=== PATIENT | female | born 2000 | race Hispanic/Latino ===

== ENCOUNTER 2018-08-25 10:16 | Emergency (ER) | payer OTHER ==
[2018-08-25] MEDS ORDERED: ONDANSETRON 4 MG/2 ML VIAL ONE (11:18)
[2018-08-25] MEDS ORDERED: NA CHLORIDE 0.9% 1,000 ML ONE (11:18)
[2018-08-25] MEDS ORDERED: PANTOPRAZOLE 40 MG INJ ONE (11:18)
[2018-08-25 11:31] LABS: Absolute Lymphocytes (CBC) 2.2 K/uL (0.7-4.9); Absolute Monocytes 0.3 K/uL (0.1-1.3); Basophils % 0.8 % (0-1.3); Hematocrit 35.7 % (36.0-45.0); MCH 26.4 pg (27.0-35.0); MCV 80.3 fL (80-100); MPV 8.9 fL (7.6-11.3); RBC Red Blood Cell Count 4.45 M/uL (3.86-4.86)
[2018-08-25 11:46] LABS: ALT/SGPT 59 U/L (12-78); AST/SGOT 44 U/L (15-37); Albumin 3.7 g/dL (3.4-5.0); Alkaline Phosphatase 92 U/L (45-117); BUN Blood Urea Nitrogen 14 mg/dL (7-18); Bicarbonate 29 mmol/L (21-32); Bilirubin Direct < 0.1 mg/dL (0-0.2); Bilirubin Total 0.3 mg/dL (0.2-1.0); Glucose Level 91 mg/dL (74-106); Lipase 354 U/L (73-393); Potassium 3.9 mmol/L (3.5-5.1); Sodium Level 140 mmol/L (136-145)
--- NOTE | 2018-08-25 12:00 | RAD REPORT ---
EXAM DESCRIPTION: US - Abdomen Exam Limited - 08/25/2018 11:40 am COMPARISON: None. FINDINGS: Multiple small gallstones are present layering in the dependent portion of the gallbladder . No gallbladder wall thickening, mass or pericholecystic fluid. No common duct stone or biliary tree dilatation identified. IMPRESSION: Multi stone cholelithiasis.
--- NOTE | 2018-08-25 12:38 | EDPHYS ---
Physician Documentation [facility] Name: Harriet Palomo Age: 17 yrs Sex: Female : 2000 Arrival Date: 08/25/2018 Time: 10:17 Bed 6 Private MD: ED Physician Barak Tan HPI: 08/25 12:35 This 17 yrs old Female presents to ER via Ambulatory with complaints of kb Abdominal Pain, Headache. 12:35 The patient presents with abdominal pain in the upper abdomen. Onset: The kb symptoms/episode began/occurred 4 day(s) ago. The symptoms do not radiate. Associated signs and symptoms: Pertinent positives: nausea and vomiting. The symptoms are described as intermittent, sharp. Modifying factors: The symptoms are alleviated by nothing, the symptoms are aggravated by food. Severity of pain: At its worst the pain was moderate in the emergency department the pain is unchanged. The patient has not experienced similar symptoms in the past. The patient has not recently seen a physician. 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 - Social history:: Smoking status: Patient/guardian denies using tobacco. - Ebola Screening: : Patient denies travel to an Ebola-affected area in the 21 days before illness onset. ROS: 12:35 Constitutional: Negative for fever, chills, and weight loss, ENT: Negative for injury, kb pain, and discharge, Neck: Negative for injury, pain, and swelling, Cardiovascular: Negative for chest pain, palpitations, and edema, Respiratory: Negative for shortness of breath, cough, wheezing, and pleuritic chest pain, Back: Negative for injury and pain, : Negative for injury, bleeding, discharge, and swelling, MS/Extremity: Negative for injury and deformity, Skin: Negative for injury, rash, and discoloration, Neuro: Negative for headache, weakness, numbness, tingling, and seizure. 12:35 Abdomen/GI: Positive for abdominal pain, nausea and vomiting, Negative for diarrhea, constipation, abdominal cramps, abdominal distension, anorexia. Exam: 12:37 Constitutional: This is a well developed, well nourished patient who is awake, alert, kb and in no acute distress. Head/Face: Normocephalic, atraumatic. Chest/axilla: Normal chest wall appearance and motion. Nontender with no deformity. No lesions are appreciated. Cardiovascular: Regular rate and rhythm with a normal S1 and S2. No gallops, murmurs, or rubs. Normal PMI, no JVD. No pulse deficits. Respiratory: Lungs have equal breath sounds bilaterally, clear to auscultation and percussion. No rales, rhonchi or wheezes noted. No increased work of breathing, no retractions or nasal flaring. Abdomen/GI: Soft, non-tender, with normal bowel sounds. No distension or tympany. No guarding or rebound. No evidence of tenderness throughout. Skin: Warm, dry with normal turgor. Normal color with no rashes, no lesions, and no evidence of cellulitis. MS/ Extremity: Pulses equal, no cyanosis. Neurovascular intact. Full, normal range of motion. Neuro: Awake and alert, GCS 15, oriented to person, place, time, and situation. Cranial nerves II-XII grossly intact. Motor strength 5/5 in all extremities. Sensory grossly intact. Cerebellar exam normal. Normal gait. Vital Signs: 10:36 BP 120 / 85; Pulse 82; Resp 18; Temp 97.0; Pulse Ox 99% on R/A; Height 5 ft. 2 in. aj1 (157.48 cm) (R); Pain 4/10; 11:42 BP 107 / 54; Pulse 64; Resp 16; Pulse Ox 100% ; bp 12:41 BP 111 / 63; Pulse 71; Resp 16; Pulse Ox 100% ; bp MDM: 10:53 Patient medically screened. kb 12:36 Data reviewed: vital signs, nurses notes. Data interpreted: Pulse oximetry: on room air kb is 100 %. Interpretation: normal. Counseling: I had a detailed discussion with the patient and/or guardian regarding: the historical points, exam findings, and any diagnostic results supporting the discharge/admit diagnosis, lab results, radiology results, the need for outpatient follow up, a general surgeon, to return to the emergency department if symptoms worsen or persist or if there are any questions or concerns that arise at home. 12:37 ED course: Pt states pain has only been at night. Denies pain at this time. kb 08/25 10:57 Order name: Basic Metabolic Panel; Complete Time: 11:53 kb 08/25 10:57 Order name: CBC with Diff; Complete Time: 11:38 kb 08/25 10:57 Order name: Hepatic Function; Complete Time: 11:53 kb 08/25 10:57 Order name: Lipase; Complete Time: 11:53 kb 08/25 10:57 Order name: US Abdomen Limited; Complete Time: 12:30 kb 08/25 10:57 Order name: IV Saline Lock; Complete Time: 11:21 kb 08/25 10:57 Order name: Labs collected and sent; Complete Time: 11:21 kb Administered Medications: 11:21 Drug: NS 0.9% 1000 ml Route: IV; Rate: 1000 ml; Site: left antecubital; bp 12:41 Follow up: IV Status: Completed infusion bp 11:22 Drug: ProTONIX 40 mg Route: IVP; Site: left antecubital; bp 12:39 Follow up: Response: No adverse reaction; Nausea is decreased bp 11:22 Drug: Zofran 4 mg Route: IVP; Site: left antecubital; bp 12:39 Follow up: Response: Nausea is decreased bp Disposition: 14:09 Co-signature as Attending Physician, Barak Tan MD. rn Disposition: 08/25/18 12:37 Discharged to Home. Impression: Cholelithiasis. - Condition is Stable. - Discharge Instructions: Cholelithiasis, [id number]. - Prescriptions for Bentyl 20 mg Oral Tablet - take 1 tablet by ORAL route every 6 hours As needed; 20 tablet. Zofran 4 mg Oral Tablet - take 1 tablet by ORAL route every 6 hours As needed; 20 tablet. - Medication Reconciliation Form, Thank You Letter, Antibiotic Education, Prescription Opioid Use form. - Follow up: Emergency Department; When: As needed; Reason: Worsening of condition. Follow up: Private Physician; When: 2 - 3 days; Reason: Recheck today's complaints, Continuance of care, Re-evaluation by your physician. Signatures: Dispatcher [employer] EDWI Mary Kay Dyson, LC ZHANG-Whitley Cole RN RN aj1 Barak Tan MD MD rn Peltier, Brian RN RN bp Corrections: (The following items were deleted from the chart) 12:49 12:37 08/25/2018 12:37 Discharged to Home. Impression: Cholelithiasis. Condition is bp Stable. Forms are Medication Reconciliation Form, Thank You Letter, Antibiotic Education, Prescription Opioid Use. Follow up: Emergency Department; When: As needed; Reason: Worsening of condition. Follow up: Private Physician; When: 2 - 3 days; Reason: Recheck today's complaints, Continuance of care, Re-evaluation by your physician. kb
--- NOTE | 2018-08-25 12:38 | ER ---
Nurse's Notes [facility] Name: Harriet Palomo Age: 17 yrs Sex: Female : 2000 Arrival Date: 08/25/2018 Time: 10:17 Bed 6 Private MD: Diagnosis: Cholelithiasis Presentation: 08/25 10:33 Presenting complaint: Patient states: "I've been getting bad pain, it only happens at aj1 night" Patient points to epigastric area, states the pain usually last for approximately 3 hours and she vomits repeatedly during that time. Reports that this has happened for the past 4 nights, and the pain radiates to her chest and upper back. Also reports diarrhea. Patient states that she had a 2 weeks ago, but denies any complications. Transition of care: patient was not received from another setting of care. Onset of symptoms was August 20, 2018. Risk Assessment: Do you want to hurt yourself or someone else? Patient reports no desire to harm self or others. Initial Sepsis Screen: Does the patient meet any 2 criteria? No. Patient's initial sepsis screen is negative. Does the patient have a suspected source of infection? Yes: Acute abdominal pain. Care prior to arrival: None. 10:33 Method Of Arrival: Ambulatory aj1 10:33 Acuity: TONY 3 aj1 Triage Assessment: 10:36 General: Appears in no apparent distress. comfortable, Behavior is calm, cooperative, aj1 appropriate for age. Pain: Complains of pain in epigastric area Pain currently is 4 out of 10 on a pain scale. Neuro: Level of Consciousness is awake, alert, obeys commands. Cardiovascular: Patient's skin is warm and dry. Respiratory: Airway is patent Respiratory effort is even, unlabored, Respiratory pattern is regular, symmetrical. GI: Reports upper abdominal pain, diarrhea, nausea, vomiting. Derm: No signs and/or symptoms reported regarding the dermatologic system. Skin is pink, warm \\T\\ dry. normal. 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 - Social history:: Smoking status: Patient/guardian denies using tobacco. - Ebola Screening: : Patient denies travel to an Ebola-affected area in the 21 days before illness onset. Screenin:25 Abuse screen: Denies threats or abuse. Denies injuries from another. Nutritional bp screening: No deficits noted. Tuberculosis screening: No symptoms or risk factors identified. Fall Risk None identified. Assessment: 10:45 General: Appears in no apparent distress. comfortable, obese, Behavior is cooperative, bp appropriate for age, anxious. Pain: Complains of pain in abdomen and epigastric area. Neuro: Level of Consciousness is awake, alert, obeys commands, Oriented to person, place, time, situation, Appropriate for age. Cardiovascular: No deficits noted. Respiratory: Airway is patent Respiratory effort is even, unlabored, Respiratory pattern is regular, symmetrical. GI: Bowel sounds present X 4 quads. Abd is soft X 4 quads Reports epigastric pain. : No signs and/or symptoms were reported regarding the genitourinary system. EENT: No deficits noted. Derm: No deficits noted. Musculoskeletal: Circulation, motion, and sensation intact. Range of motion:. 11:41 Reassessment: PT RETURNED FROM U/S. UOP PENDING. bp 12:42 Reassessment: PT D/C HOME AMBULATORY, DX WITH CHOLELITHIASIS. bp Vital Signs: 10:36 BP 120 / 85; Pulse 82; Resp 18; Temp 97.0; Pulse Ox 99% on R/A; Height 5 ft. 2 in. aj1 (157.48 cm) (R); Pain 4/10; 11:42 BP 107 / 54; Pulse 64; Resp 16; Pulse Ox 100% ; bp 12:41 BP 111 / 63; Pulse 71; Resp 16; Pulse Ox 100% ; bp ED Course: 10:17 Patient arrived in ED. as 10:35 Triage completed. aj1 10:36 Arm band placed on Patient placed in waiting room, Patient notified of wait time. aj1 10:53 Mary Kay Dyson FNP-C is PHCP. kb 10:53 Barak Tan MD is Attending Physician. kb 11:07 Ray Romero, RUI is Primary Nurse. bp 11:22 Radiology exam delayed due to IV insertion attempt and/or patient not having aa4 appropriate IV at this time. 11:23 Inserted saline lock: 20 gauge in left antecubital area, using aseptic technique. Blood bp collected. 11:23 Initial lab(s) drawn, by me, sent to lab. em1 11:25 Patient has correct armband on for positive identification. Bed in low position. Call bp light in reach. Side rails up X2. 11:31 Patient taken to ultrasound. via wheelchair. aa4 11:39 Ultrasound completed. Patient tolerated well. Patient moved back from ultrasound. aa4 11:39 US Abdomen Limited In Process Unspecified. EDMS 12:42 No provider procedures requiring assistance completed. IV discontinued, intact, bp bleeding controlled, No redness/swelling at site. Pressure dressing applied. Administered Medications: 11:21 Drug: NS 0.9% 1000 ml Route: IV; Rate: 1000 ml; Site: left antecubital; bp 12:41 Follow up: IV Status: Completed infusion bp 11:22 Drug: ProTONIX 40 mg Route: IVP; Site: left antecubital; bp 12:39 Follow up: Response: No adverse reaction; Nausea is decreased bp 11:22 Drug: Zofran 4 mg Route: IVP; Site: left antecubital; bp 12:39 Follow up: Response: Nausea is decreased bp Outcome: 12:37 Discharge ordered by . kb 12:49 Discharged to home ambulatory. bp 12:49 Condition: stable 12:49 Discharge instructions given to patient, Instructed on discharge instructions, follow up and referral plans. medication usage, Demonstrated understanding of instructions, follow-up care, medications, Prescriptions given X 2. 12:49 Patient left the ED. bp Signatures: Dispatcher [employer] EDHI Mary Kay Dyson, LC ABRAMSP-Whitley Cole, RN RN aj1 Maryam Mejía Amanda aa4 Domo Mejía em1 Ray Romero, RN RN bp Corrections: (The following items were deleted from the chart) 10:37 10:33 Presenting complaint: Patient states: "I've been getting bad pain, it only aj1 happens at night" Patient points to epigastric area, states the pain usually last for approximately 3 hours and she vomits repeatedly during that time. Reports that this has happened for the past 4 nights, and the pain radiates to her chest and upper back. Also reports diarrhea. aj1
== END 2018-08-25 12:49 | disposition home or self-care (01) ==
LOC: ER 10:16
DX: K80.20 Calculus of gallbladder without cholecystitis without obstruction (principal)
CPT/HCPCS: 36415; 76705; 80048; 80076; 83690; 85025; 96361; 96374; 96375; 99284; C9113; J2405; J7030

== ENCOUNTER 2019-12-06 00:48 | Emergency (ER) | payer OTHER, SELFPAY ==
--- OUTSIDE RECORDS SUMMARY | 2019-12-06 00:49 | XMS REPORT ---
:2000 [facility] Address [address] [place] [address] Care Team Providers Name Role Phone Unavailable Unavailable Unavailable Problems This patient has no known problems. Allergies, Adverse Reactions, Alerts This patient has no known allergies or adverse reactions. Medications This patient has no known medications.
[2019-12-06] MEDS ORDERED: MORPHINE 4 MG/ML SYR ONE (01:40)
[2019-12-06] MEDS ORDERED: ONDANSETRON 4 MG/2 ML VIAL ONE (01:40)
[2019-12-06] MEDS ORDERED: NA CHLORIDE 0.9% 1,000 ML ONE (01:40)
[2019-12-06 01:47] LABS: Absolute Lymphocytes (CBC) 0.7 K/uL (0.7-4.9); Basophils % 0.3 % (0-1.3); Hematocrit 39.9 % (36.0-45.0); MPV 8.9 fL (7.6-11.3); RBC Red Blood Cell Count 4.78 M/uL (3.86-4.86)
[2019-12-06 01:59] LABS: ALT/SGPT 20 U/L (12-78); AST/SGOT 20 U/L (15-37); Albumin 3.7 g/dL (3.4-5.0); Alkaline Phosphatase 64 U/L (45-117); BUN Blood Urea Nitrogen 13 mg/dL (7-18); Bicarbonate 27 mmol/L (21-32); Bilirubin Direct < 0.1 mg/dL (0-0.2); Bilirubin Total 0.3 mg/dL (0.2-1.0); Glucose Level 101 mg/dL (74-106); Lipase 97 U/L (73-393); Potassium 3.6 mmol/L (3.5-5.1); Protein, Total 7.8 g/dL (6.4-8.2); Sodium Level 137 mmol/L (136-145)
[2019-12-06 02:26] LABS: Urine Blood TRACE (NEG); Urine Glucose NEGATIVE (NEG); Urine Protein NEGATIVE (NEG); Urine Specific Gravity 1.025 (1.005-1.030); Urine pH 5.5 (5.0-7.0)
--- NOTE | 2019-12-06 03:31 | EDPHYS ---
Physician Documentation [facility] Name: Harriet Palomo Age: 18 yrs Sex: Female : 2000 Arrival Date: 12/06/2019 Time: 00:51 Bed 14 Private MD: ED Physician Linh Brunson HPI: 12/06 01:16 This 18 yrs old Female presents to ER via Ambulatory with complaints of pm1 Abdominal pain. 01:16 The patient presents with abdominal pain in the upper abdomen. Onset: The pm1 symptoms/episode began/occurred yesterday, at 13:00. The symptoms radiate to back. Associated signs and symptoms: Pertinent positives: nausea and vomiting, Pertinent negatives: chest pain, diarrhea, dysuria, fever, shortness of breath. The symptoms are described as sharp. Modifying factors: The symptoms are alleviated by nothing, the symptoms are aggravated by food, Onset after eating velazquez eggs and beans for breakfast. Severity of pain: in the emergency department the pain is a 5 / 10. The patient has experienced similar episodes in the past, a few times, today's symptoms are similar, to previous "gallbladder attacks". The patient has not recently seen a physician. 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 - Coronavirus screen:: The patient has NOT traveled to [place] in the past 14 days. - Social history:: Smoking status: Patient denies any tobacco usage or history of. - Ebola Screening: : No symptoms or risks identified at this time. ROS: 01:16 Constitutional: Negative for fever, chills, and weight loss, Neck: Negative for injury, pm1 pain, and swelling, Cardiovascular: Negative for chest pain, palpitations, and edema, Respiratory: Negative for shortness of breath, cough, wheezing, and pleuritic chest pain. 01:16 Back: Negative for injury and pain, : Negative for injury, bleeding, discharge, and swelling, MS/Extremity: Negative for injury and deformity, Skin: Negative for injury, rash, and discoloration, Neuro: Negative for headache, weakness, numbness, tingling, and seizure. 01:16 Abdomen/GI: Positive for abdominal pain, nausea and vomiting, Negative for diarrhea, constipation. Exam: 01:16 Constitutional: This is a well developed, well nourished patient who is awake, alert, pm1 and in no acute distress. Head/Face: Normocephalic, atraumatic. Eyes: Pupils equal round and reactive to light, extra-ocular motions intact. Lids and lashes normal. Conjunctiva and sclera are non-icteric and not injected. Cornea within normal limits. Periorbital areas with no swelling, redness, or edema. ENT: Nares patent. No nasal discharge, no septal abnormalities noted. Tympanic membranes are normal and external auditory canals are clear. Oropharynx with no redness, swelling, or masses, exudates, or evidence of obstruction, uvula midline. Mucous membranes moist. Neck: Trachea midline, no thyromegaly or masses palpated, and no cervical lymphadenopathy. Supple, full range of motion without nuchal rigidity, or vertebral point tenderness. No Meningismus. Chest/axilla: Normal chest wall appearance and motion. Nontender with no deformity. No lesions are appreciated. Cardiovascular: Regular rate and rhythm with a normal S1 and S2. No gallops, murmurs, or rubs. Normal PMI, no JVD. No pulse deficits. Respiratory: Lungs have equal breath sounds bilaterally, clear to auscultation and percussion. No rales, rhonchi or wheezes noted. No increased work of breathing, no retractions or nasal flaring. 01:16 Back: No spinal tenderness. No costovertebral tenderness. Full range of motion. Skin: Warm, dry with normal turgor. Normal color with no rashes, no lesions, and no evidence of cellulitis. MS/ Extremity: Pulses equal, no cyanosis. Neurovascular intact. Full, normal range of motion. 01:16 Abdomen/GI: Inspection: obese Bowel sounds: normal, Palpation: soft, mild abdominal tenderness, in the epigastric area, mass, is not appreciated, rebound tenderness, is not appreciated. 01:16 Neuro: Orientation: is normal, Motor: is normal, no acute changes, moves all fours. Vital Signs: 01:02 BP 160 / 78; Pulse 130; Resp 18; Temp 97.8; Pulse Ox 98% ; Weight 58.97 kg; Height 5 ea ft. 2 in. (157.48 cm); Pain 6/10; 02:00 BP 128 / 76; Pulse 106; Resp 15; Pulse Ox 98% on R/A; rv 02:38 BP 119 / 77; Pulse 104; Resp 18; Pulse Ox 100% ; rv 03:41 BP 128 / 78; Pulse 99; Resp 18; Temp 97.8; Pulse Ox 99% ; ea 01:02 Body Mass Index 23.78 (58.97 kg, 157.48 cm) ea MDM: 01:09 Patient medically screened. pm1 02:16 Data reviewed: vital signs. Data interpreted: Pulse oximetry: on room air is 98 %. pm1 Interpretation: normal. 03:28 Counseling: I had a detailed discussion with the patient and/or guardian regarding: the pm1 historical points, exam findings, and any diagnostic results supporting the discharge/admit diagnosis, lab results, radiology results, the need for outpatient follow up, a plywood patcher, to return to the emergency department if symptoms worsen or persist or if there are any questions or concerns that arise at home. 12/06 01:08 Order name: CBC with Diff; Complete Time: 02:15 pm12/06 01:08 Order name: Creatinine for Radiology; Complete Time: 02:15 pm1 12/06 01:08 Order name: Hepatic Function; Complete Time: 02:15 pm1 12/06 01:08 Order name: Lipase; Complete Time: 02:15 pm12/06 01:46 Order name: Basic Metabolic Panel; Complete Time: 02:15 EDMI 12/06 01:08 Order name: CT Abd/Pelvis - IV Contrast Only pm1 12/06 02:22 Order name: Urine Dipstick--Ancillary (enter results) ia 12/06 02:22 Order name: Urine --Ancillary (enter results) ia 12/06 02:26 Order name: Urine --Ancillary; Complete Time: 03:06 EDMI 12/06 02:26 Order name: Urine Dipstick-Ancillary; Complete Time: 03:06 EDMI 12/06 01:08 Order name: IV Saline Lock; Complete Time: 01:33 pm1 12/06 01:08 Order name: Labs collected and sent; Complete Time: 01:33 pm12/06 01:08 Order name: Urine Dipstick-Ancillary (obtain specimen); Complete Time: 02:22 pm1 12/06 01:08 Order name: Urine Test (obtain specimen); Complete Time: 02:22 pm1 Administered Medications: 01:40 Drug: NS 0.9% 1000 ml Route: IV; Rate: 1000 ml; Site: right antecubital; rv 01:40 Drug: Zofran 4 mg Route: IVP; Site: right antecubital; rv 03:20 Follow up: Response: No adverse reaction ea 03:30 Not Given (Patient Refused): morphine 4 mg IVP once; RASS on ADMIN: Combtv4, Very ea Agttd3, Agttd2, Rstlss1, AlertClm0, Drwsy-1, Lt Sdtn-2, Mod Sdtn-3, Dp Sdtn-4, UnArsble-5 03:30 Drug: Bentyl 20 mg Route: PO; ea 03:40 Follow up: Response: No adverse reaction ea Disposition: 12/06/19 03:29 Discharged to Home. Impression: Unspecified abdominal pain, Headache. - Condition is Stable. - Discharge Instructions: Abdominal Pain, Adult, General Headache Without Cause. - Prescriptions for Bentyl 20 mg Oral Tablet - take 1 tablet by ORAL route every 6 hours As needed; 20 tablet. Zofran 4 mg Oral Tablet - take 1 tablet by ORAL route every 12 hours As needed; 20 tablet. - Medication Reconciliation Form, Thank You Letter, Antibiotic Education, Prescription Opioid Use form. - Follow up: Emergency Department; When: As needed; Reason: Worsening of condition. Follow up: Private Physician; When: 2 - 3 days; Reason: Recheck today's complaints, Continuance of care, Re-evaluation by your physician. - Problem is new. - Symptoms have improved. Addendum: 12/12/2019 16:30 Co-signature as Attending Physician, Linh Brunson MD. m a2 Signatures: Dispatcher [employer] EDMS Devin Dumont, REEL ASSEMBLER REEL ASSEMBLER pm1 Mile Meza RN RN ea Alzahri, Mohammad, MD MD ma2 Hu Sandoval RN RN rv Corrections: (The following items were deleted from the chart) 12/06 01:45 01:12 BASIC METABOLIC PANEL+[id number].LAB.BRZ ordered. EDMS EDMS 03:43 03:29 12/06/2019 03:29 Discharged to Home. Impression: Unspecified abdominal pain; ea Headache. Condition is Stable. Forms are Medication Reconciliation Form, Thank You Letter, Antibiotic Education, Prescription Opioid Use. Follow up: Emergency Department; When: As needed; Reason: Worsening of condition. Follow up: Private Physician; When: 2 - 3 days; Reason: Recheck today's complaints, Continuance of care, Re-evaluation by your physician. Problem is new. Symptoms have improved. pm1
--- NOTE | 2019-12-06 03:31 | ER ---
Nurse's Notes [facility] Name: Harriet Palomo Age: 18 yrs Sex: Female : 2000 Arrival Date: 12/06/2019 Time: 00:51 Bed 14 Private MD: Diagnosis: Unspecified abdominal pain;Headache Presentation: 12/06 01:00 Presenting complaint: Patient states: Pt reports around 1 PM she started having ea headache, nausea /vomiting and abdominal pain. Reports she not able to tolerate food. Denies constipation or diarrhea. States " I have had problems with my gallbladder in the past". Transition of care: patient was not received from another setting of care. Onset of symptoms was December 06, 2019. Risk Assessment: Do you want to hurt yourself or someone else? Patient reports no desire to harm self or others. Initial Sepsis Screen: Does the patient meet any 2 criteria? No. Patient's initial sepsis screen is negative. Does the patient have a suspected source of infection? No. Patient's initial sepsis screen is negative. Care prior to arrival: None. 01:00 Method Of Arrival: Ambulatory ea 01:00 Acuity: TONY 3 ea Triage Assessment: 01:04 Headache History: The patient has had previous headaches and this one is similar to ea previous episodes. General: Appears uncomfortable, Behavior is calm, cooperative, appropriate for age. Pain: Complains of pain in right upper quadrant and left upper quadrant Pain currently is 6 out of 10 on a pain scale. Pain began 1 day ago. Also complains of nausea. Neuro: Level of Consciousness is awake, alert, obeys commands, Oriented to person, place, time, situation, Reports headache frontal area. 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 - Coronavirus screen:: The patient has NOT traveled to [place] in the past 14 days. - Social history:: Smoking status: Patient denies any tobacco usage or history of. - Ebola Screening: : No symptoms or risks identified at this time. Screenin:02 Abuse screen: Denies threats or abuse. Nutritional screening: No deficits noted. ea Tuberculosis screening: No symptoms or risk factors identified. Fall Risk None identified. Assessment: 01:34 General: Appears in no apparent distress. Behavior is calm, cooperative. Pain: rv Complains of pain in abdomen. Neuro: Level of Consciousness is awake, alert, obeys commands, Oriented to person, place, time, situation. Cardiovascular: Patient's skin is warm and dry. Respiratory: Airway is patent. GI: Abdomen is round non-distended. 02:22 Reassessment: Patient appears in no apparent distress at this time. Patient and/or rv family updated on plan of care and expected duration. Pain level reassessed. Patient is alert, oriented x 3, equal unlabored respirations, skin warm/dry/pink. patient's pain scale is 3/10 at this time. Morphine was not given. patient taken to CT scan. 03:20 Reassessment: Patient and/or family updated on plan of care and expected duration. Pain ea level reassessed. Patient is alert, oriented x 3, equal unlabored respirations, skin warm/dry/pink. Awaiting on CT results. 03:40 Reassessment: Patient and/or family updated on plan of care and expected duration. Pain ea level reassessed. Patient is alert, oriented x 3, equal unlabored respirations, skin warm/dry/pink. Discharge instruction given to patient, verbalized the understanding of instruction. Pt left ED ambulatory accompanied by family, tolerating well. Vital Signs: 01:02 BP 160 / 78; Pulse 130; Resp 18; Temp 97.8; Pulse Ox 98% ; Weight 58.97 kg; Height 5 ea ft. 2 in. (157.48 cm); Pain 6/10; 02:00 BP 128 / 76; Pulse 106; Resp 15; Pulse Ox 98% on R/A; rv 02:38 BP 119 / 77; Pulse 104; Resp 18; Pulse Ox 100% ; rv 03:41 BP 128 / 78; Pulse 99; Resp 18; Temp 97.8; Pulse Ox 99% ; ea 01:02 Body Mass Index 23.78 (58.97 kg, 157.48 cm) ea ED Course: 00:51 Patient arrived in ED. ag3 01:02 Triage completed. ea 01:07 Devin Dumont NP is PHCP. pm1 01:07 Linh Brunson MD is Attending Physician. pm1 01:32 Hu Sandoval, RUI is Primary Nurse. rv 01:33 Inserted saline lock: 18 gauge in right antecubital area, using aseptic technique. rv Blood collected. 01:33 Patient has correct armband on for positive identification. Pulse ox on. NIBP on. rv 01:33 Patient placed in the treatment room, on a stretcher. rv 01:35 Radiology exam delayed due to lab results not completed at this time. (BUN/Creatinine) kw1 test not completed at this time. 01:54 Radiology exam delayed due to lab results not completed at this time. test kw1 not completed at this time. 02:07 Radiology exam delayed due to test not completed at this time. kw1 02:45 CT Abd/Pelvis - IV Contrast Only In Process Unspecified. EDMS 03:35 IV discontinued, intact, bleeding controlled, No redness/swelling at site. Pressure ea dressing applied. 03:42 No provider procedures requiring assistance completed. ea Administered Medications: 01:40 Drug: NS 0.9% 1000 ml Route: IV; Rate: 1000 ml; Site: right antecubital; rv 01:40 Drug: Zofran 4 mg Route: IVP; Site: right antecubital; rv 03:20 Follow up: Response: No adverse reaction ea 03:30 Not Given (Patient Refused): morphine 4 mg IVP once; RASS on ADMIN: Combtv4, Very ea Agttd3, Agttd2, Rstlss1, AlertClm0, Drwsy-1, Lt Sdtn-2, Mod Sdtn-3, Dp Sdtn-4, UnArsble-5 03:30 Drug: Bentyl 20 mg Route: PO; ea 03:40 Follow up: Response: No adverse reaction ea Outcome: 03:29 Discharge ordered by . pm1 03:43 Discharged to home ambulatory, with family. ea 03:43 Condition: stable 03:43 Discharge instructions given to patient, Instructed on discharge instructions, follow up and referral plans. medication usage, Demonstrated understanding of instructions, follow-up care, medications, Prescriptions given X 3. 03:43 Patient left the ED. ea Signatures: Dispatcher [employer] EDMS Devin Dumont, LYNETTE EXTENSION FORESTER pm1 Mile Meza RN RN Janie Montenegro kw1 Hu Sandoval RN RN Rochelle Monique ag3
[2019-12-06] MEDS ORDERED: DICYCLOMINE HCL 10 MG CAP ONE (03:40)
[2019-12-06 04:54] VITALS: TEMP 97.8
[2019-12-06 04:58] VITALS: BP 128/78; O2SAT 99
--- NOTE | 2019-12-06 10:36 | RAD REPORT ---
EXAM DESCRIPTION: Abdomen Pelvis W Contrast CLINICAL HISTORY: ABD PAIN COMPARISON: None. TECHNIQUE: CT ABDOMEN PELVIS WITH IV CONTRAST on 12/06/2019 1:08 AM FAMILY [employer]VOCATE This exam was performed according to our departmental dose-optimization program, which includes autom ated exposure control, adjustment of the mA and/or kV according to patient size and/or use of iterati ve reconstruction technique. FINDINGS: Lower lungs are clear. Abdomen: The liver is normal in appearance. There is no biliary dilatation. Gallbladder is normal in appearance. The pancreas and spleen are normal in appearance. The adrenal glands and kidneys are unre markable. Abdominal aorta is normal in course and caliber without aneurysm. There is no free air. There is no r etroperitoneal adenopathy. Pelvis: There is no bowel obstruction. Urinary bladder is unremarkable. There is moderate amount of f ree pelvic fluid. Uterus is normal in size. Appendix is normal. There is a small infraumbilical fat-c ontaining ventral hernia. Skeleton: There are no acute osseous findings. No suspicious bony lesions. IMPRESSION: No definite acute process. Electronically signed by: Dereck Bowman MD 12/06/2019 3:02 AM [facility]ILY [facility] Due to temporary technical issues with the PACS/Fluency reporting system, reports are being signed by the in house radiologist as a courtesy to ensure prompt reporting. The interpreting radiologist is f preet responsible for the content of the report.
== END 2019-12-06 03:43 | disposition home or self-care (01) ==
LOC: ER 00:48
DX: R51 Headache (principal)
CPT/HCPCS: 36415; 74177; 80048; 80076; 81003; 81025; 83690; 85025; 96374; 99284; J2405; J7030; Q9967

== ENCOUNTER 2020-04-27 16:34 | Emergency (ER) | payer OTHER, SELFPAY ==
--- OUTSIDE RECORDS SUMMARY | 2020-04-27 16:36 | XMS REPORT | Continuity of Care Document ---
:2000 Author Organization [facility] t Address [address] [place] [place] [address] Care Team Providers Name Role Phone Unavailable Unavailable Unavailable Problems This patient has no known problems. Allergies, Adverse Reactions, Alerts This patient has no known allergies or adverse reactions. Medications This patient has no known medications. Procedures This patient has no known procedures. Results This patient has no known results.
--- NOTE | 2020-04-27 17:20 | EDPHYS ---
Physician Documentation [facility] Name: Harriet Palomo Age: 19 yrs Sex: Female : 2000 Arrival Date: 04/27/2020 Time: 16:37 Bed 20 Private MD: ED Physician Calvin Huerta HPI: 04/27 17:18 This 19 yrs old Female presents to ER via Ambulatory with complaints of Body kb Aches, Fever, Headache, Weakness. 17:18 The patient or guardian reports flu symptoms, low-grade fever, myalgias. Severity of kb symptoms: At their worst the symptoms were mild, moderate, in the emergency department the symptoms are unchanged. 17:18 Onset: The symptoms/episode began/occurred 3 day(s) ago. Modifying factors: The kb symptoms are alleviated by nothing, the symptoms are aggravated by nothing. Associated signs and symptoms: Pertinent positives: chest pain, Pertinent negatives: diarrhea, ear ache, fever, nausea, rhinorrhea, sore throat, vomiting. The patient has not experienced similar symptoms in the past. The patient has not recently seen a physician. Pt reports fatigue, malaise, chills, body aches and headaches for 3 days. States she was with her friend over the weekend that just tested positive for barragan so she came to get tested just in case. . Historical: - Allergies: 16:38 No Known Drug Allergies; sv - PSHx: 16:38 ; sv - Immunization history:: Adult Immunizations. - Social history:: Smoking status: . ROS: 17:11 Neck: Negative for injury, pain, and swelling, Respiratory: Negative for shortness of kb breath, cough, wheezing, and pleuritic chest pain, Abdomen/GI: Negative for abdominal pain, nausea, vomiting, diarrhea, and constipation, MS/Extremity: Negative for injury and deformity, Skin: Negative for injury, rash, and discoloration. 17:11 Constitutional: Positive for body aches, chills, fatigue, malaise. 17:11 Cardiovascular: Positive for chest pain, Negative for edema, orthopnea, palpitations, paroxysmal nocturnal dyspnea. 17:11 Neuro: Positive for headache. Exam: 17:14 Constitutional: This is a well developed, well nourished patient who is awake, alert, kb and in no acute distress. Head/Face: Normocephalic, atraumatic. Chest/axilla: Normal chest wall appearance and motion. Nontender with no deformity. No lesions are appreciated. Cardiovascular: Regular rate and rhythm with a normal S1 and S2. No gallops, murmurs, or rubs. Normal PMI, no JVD. No pulse deficits. Respiratory: Lungs have equal breath sounds bilaterally, clear to auscultation and percussion. No rales, rhonchi or wheezes noted. No increased work of breathing, no retractions or nasal flaring. Abdomen/GI: Soft, non-tender, with normal bowel sounds. No distension or tympany. No guarding or rebound. No evidence of tenderness throughout. Skin: Warm, dry with normal turgor. Normal color with no rashes, no lesions, and no evidence of cellulitis. MS/ Extremity: Pulses equal, no cyanosis. Neurovascular intact. Full, normal range of motion. Neuro: Awake and alert, GCS 15, oriented to person, place, time, and situation. Cranial nerves II-XII grossly intact. Motor strength 5/5 in all extremities. Sensory grossly intact. Cerebellar exam normal. Normal gait. Vital Signs: 16:40 BP 115 / 70; Pulse 109; Resp 16; Temp 98.8(TE); Pulse Ox 99% ; Weight 81.65 kg; Height sv 5 ft. 2 in. (157.48 cm); 16:40 Body Mass Index 32.92 (81.65 kg, 157.48 cm) sv MDM: 16:57 Patient medically screened. kb 17:11 Data reviewed: vital signs, nurses notes. Data interpreted: Pulse oximetry: on room air kb is 99 %. Interpretation: normal. Counseling: I had a detailed discussion with the patient and/or guardian regarding: the historical points, exam findings, and any diagnostic results supporting the discharge/admit diagnosis, radiology results, the need for outpatient follow up, a family practitioner, to return to the emergency department if symptoms worsen or persist or if there are any questions or concerns that arise at home. 04/27 17:08 Order name: COVID-19 kb 04/27 16:46 Order name: Chest Single View XRAY; Complete Time: 17:30 kb Administered Medications: No medications were administered Disposition: 04/27/20 17:20 Discharged to Home. Impression: Acute upper respiratory infection, unspecified. - Condition is Stable. - Discharge Instructions: Viral Respiratory Infection, [id number], COVID-19. - Medication Reconciliation Form, Thank You Letter, Antibiotic Education, Prescription Opioid Use form. - Follow up: Emergency Department; When: As needed; Reason: Worsening of condition. Follow up: Private Physician; When: 2 - 3 days; Reason: Recheck today's complaints, Continuance of care, Re-evaluation by your physician. Addendum: 04/30/2020 16:28 Co-signature as Attending Physician, Calvin Huerta MD I agree with the assessment and k dr plan of care. Signatures: Dispatcher [employer] EDMS Mary Kay Dyson, LEATHA-Jesus Manuel ZHANG-Elise Tirado RN RN Calvin Lopez MD MD kdr Corrections: (The following items were deleted from the chart) 04/27 17:59 17:20 04/27/2020 17:20 Discharged to Home. Impression: Acute upper respiratory sv infection, unspecified. Condition is Stable. Forms are Medication Reconciliation Form, Thank You Letter, Antibiotic Education, Prescription Opioid Use. Follow up: Emergency Department; When: As needed; Reason: Worsening of condition. Follow up: Private Physician; When: 2 - 3 days; Reason: Recheck today's complaints, Continuance of care, Re-evaluation by your physician. kb
--- NOTE | 2020-04-27 17:20 | ER ---
Nurse's Notes [facility] Name: Harriet Palomo Age: 19 yrs Sex: Female : 2000 Arrival Date: 04/27/2020 Time: 16:37 Bed 20 Private MD: Diagnosis: Acute upper respiratory infection, unspecified Presentation: 04/27 16:38 Chief complaint: Patient states: body soreness, migraines, body feels hot, chest pain, sv dizziness x 3 days. Coronavirus screen: Surgical mask placed on patient. Patient moved to private room, placed in contact and droplet isolation with eye protection until further assessment. Patient denies a cough. Patient denies shortness of breath or difficulty breathing. Patient denies measured and/or subjective temperature greater than 100.4F prior to today's visit. Patient denies travel on a cruise ship or to a country the [facility] currently lists as an affected area. Patient reports contact with known and/or suspected case of COVID-19. Friend was positive that she was around. Ebola Screen: No symptoms or risks identified at this time. Risk Assessment: Do you want to hurt yourself or someone else? Patient reports no desire to harm self or others. Onset of symptoms was April 24, 2020. 16:38 Method Of Arrival: Ambulatory sv 16:38 Acuity: TONY 3 sv 16:40 Initial Sepsis Screen: Does the patient meet any 2 criteria? HR > 90 bpm. No. Patient's sv initial sepsis screen is negative. Does the patient have a suspected source of infection? No. Patient's initial sepsis screen is negative. Triage Assessment: 16:40 General: Appears in no apparent distress. comfortable, Behavior is calm, cooperative, sv appropriate for age. Neuro: Level of Consciousness is awake, alert, obeys commands, Oriented to person, place, time, situation, Gait is steady. Respiratory: Respiratory effort is even, unlabored. Historical: - Allergies: 16:38 No Known Drug Allergies; sv - PSHx: 16:38 ; sv - Immunization history:: Adult Immunizations. - Social history:: Smoking status: . Screenin:58 Abuse screen: Denies threats or abuse. Denies injuries from another. Nutritional sv screening: No deficits noted. Tuberculosis screening: No symptoms or risk factors identified. Fall Risk None identified. Assessment: 17:58 Reassessment: Patient appears in no apparent distress at this time. No changes from sv previously documented assessment. Patient and/or family updated on plan of care and expected duration. Pain level reassessed. Patient is alert, oriented x 3, equal unlabored respirations, skin warm/dry/pink. See triage assessment. Vital Signs: 16:40 BP 115 / 70; Pulse 109; Resp 16; Temp 98.8(TE); Pulse Ox 99% ; Weight 81.65 kg; Height sv 5 ft. 2 in. (157.48 cm); 16:40 Body Mass Index 32.92 (81.65 kg, 157.48 cm) sv ED Course: 16:37 Patient arrived in ED. ag5 16:37 Arm band placed on. sv 16:40 Triage completed. sv 16:43 Mary Kay Dyson FNP-C is PHCP. kb 16:43 Calvin Huerta MD is Attending Physician. kb 17:02 Chest Single View XRAY In Process Unspecified. EDMS 17:06 Aida Magallanes RN is Primary Nurse. ca1 17:58 Patient has correct armband on for positive identification. sv 17:58 No provider procedures requiring assistance completed. Patient did not have IV access sv during this emergency room visit. Administered Medications: No medications were administered Outcome: 17:20 Discharge ordered by . kb 17:58 Discharged to home ambulatory. sv 17:58 Condition: stable 17:58 Discharge instructions given to patient, Instructed on discharge instructions, follow up and referral plans. Informed pt to quarantine for 14 days. Demonstrated understanding of instructions, follow-up care, Pt understood to quarantine for 14 days 17:59 Patient left the ED. sv Addendum: 05/01/2020 11:19 Addendum: COVID-19 Result: Positive result giiven to ED physician to notify pt. cam cheng Physician: Chaparro Ying MD Physician was able to contact pt and pt was notified of positive COVID-19 swab result. Physician answered pt questions. Signatures: Dispatcher [employer] EDMS Mary Kay Dyson FNP-C FNP-Ckb Markwardt, Deana, RN RN dmElise Deutsch RN RN Aida Magallanes RN RN ca1 Andrade Villanueva ag5
--- NOTE | 2020-04-27 17:26 | RAD REPORT ---
EXAM DESCRIPTION: Lynn Single View04/27/2020 5:03 pm CLINICAL HISTORY: Chest pain COMPARISON: none FINDINGS: The lungs appear clear of acute infiltrate. The heart is normal size IMPRESSION: No acute abnormalities displayed
== END 2020-04-27 17:59 | disposition home or self-care (01) ==
LOC: ER 16:34
DX: U07.1 COVID-19 (principal); J98.8 Other specified respiratory disorders
CPT/HCPCS: 71045; 99283; U0001

== ENCOUNTER 2021-04-24 12:09 | Emergency (ER) | payer SELFPAY ==
--- NOTE | 2021-04-24 13:24 | EDPHYS ---
Physician Documentation [facility] Name: Harriet Palomo Age: 20 yrs Sex: Female : 2000 Arrival Date: 04/24/2021 Time: 12:12 Bed 5 Private MD: ED Physician Calvin Huerta HPI: 04/24 13:16 This 20 yrs old Female presents to ER via Ambulatory with complaints of Ear jmm Pain, Toothache. 13:16 The patient presents with pain. Onset: The symptoms/episode began/occurred gradually, 3 jmm day(s) ago. Associated signs and symptoms: Pertinent negatives: fever. This is a 20 year old female currently 6 month that presents to the ED with complaints of left lower molar pain. Denies fever. Symptoms are worse at night. . 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 - Social history:: Smoking status: Patient denies any tobacco usage or history of. ROS: 13:16 Constitutional: Negative for fever, chills, and weight loss, Cardiovascular: Negative jmm for chest pain, palpitations, and edema, Respiratory: Negative for shortness of breath, cough, wheezing, and pleuritic chest pain. 13:16 ENT: Positive for ear pain. 13:16 All other systems are negative. Exam: 13:16 Constitutional: This is a well developed, well nourished patient who is awake, alert, jmm and in no acute distress. Head/Face: atraumatic. Eyes: EOMI, no conjunctival erythema appreciated 13:16 Neck: Trachea midline, Supple Chest/axilla: Normal chest wall appearance and motion. Cardiovascular: Regular rate and rhythm. No edema appreciated Respiratory: Normal respirations, no respiratory distress appreciated Abdomen/GI: Non distended, soft Back: Normal ROM Skin: General appearance color normal MS/ Extremity: Moves all extremities, no obvious deformities appreciated, no edema noted to the lower extremities Neuro: Awake and alert, normal gait Psych: Behavior is normal, Mood is normal, Patient is cooperative and pleasant 13:16 ENT: Dental exam: dental caries, that is moderate, specifically in the lower left first molar (#19), pain, that is moderate, specifically in the lower left first molar (#19). Vital Signs: 12:40 BP 118 / 64; Pulse 77; Resp 17; Temp 97.9; Pulse Ox 98% ; Weight 86.18 kg; Height 5 ft. ll1 2 in. (157.48 cm); Pain 7/10; 13:30 Pulse 75; Resp 16 S; Pulse Ox 98% on R/A; jd3 12:40 Body Mass Index 34.75 (86.18 kg, 157.48 cm) ll1 MDM: 13:15 Patient medically screened. [facility] 13:20 Data reviewed: vital signs, nurses notes. Counseling: I had a detailed discussion with [facility] the patient and/or guardian regarding: the historical points, exam findings, and any diagnostic results supporting the discharge/admit diagnosis, the need for outpatient follow up, to return to the emergency department if symptoms worsen or persist or if there are any questions or concerns that arise at home. ED course: Patient is alert and non toxic in appearance in the ED. I do not suspect abscess or ludwigs. Patient is advised to follow up with dentist/obgyn for further evaluation. Patient understood and agrees with the plan of care. . Administered Medications: No medications were administered Disposition: 17:12 Co-signature as Attending Physician, Calvin Huerta MD I agree with the assessment and kdr plan of care. Disposition Summary: 04/24/21 13:23 Discharge Ordered Location: Home [facility] Condition: Stable [facility] Diagnosis - Dental caries, unspecified [facility] Followup: [facility] - With: Private Physician - When: 2 - 3 days - Reason: Recheck today's complaints, Continuance of care, Re-evaluation by your physician Discharge Instructions: - Discharge Summary Sheet [facility] - Dental Caries, Adult [facility] Forms: - Medication Reconciliation Form [facility] - Thank You Letter [facility] - Antibiotic Education [facility] - Prescription Opioid Use [facility] Prescriptions: - acetaminophen-codeine 300-15 mg Oral tablet - take 1 tablet by ORAL route every 6 hours; 6 tablet; Refills: 0, Product [facility] Selection Permitted - Amoxicillin 875 mg Oral Tablet - take 1 tablet by ORAL route every 12 hours for 10 days; 20 tablet; Refills: 0, [facility] Product Selection Permitted Signatures: Calvin Huerta MD MD kdr Kvng Varela PA PA jmm Lewis, Lynsay, RN RN ll1
--- NOTE | 2021-04-24 13:24 | ER ---
Nurse's Notes [facility] Name: Harriet Palomo Age: 20 yrs Sex: Female : 2000 Arrival Date: 04/24/2021 Time: 12:12 Bed 5 Private MD: Diagnosis: Dental caries, unspecified Presentation: 04/24 12:40 Chief complaint: Patient states: L lower jaw tooth pain and L ear pain for 4 days. No ll1 fever. 6 months , saw OB 1st, baby is good. G4, P3. Coronavirus screen: Client denies travel out of the [place] in the last 14 days. At this time, the client does not indicate any symptoms associated with coronavirus-19. Ebola Screen: Patient denies travel to an Ebola-affected area in the 21 days before illness onset. Initial Sepsis Screen: Does the patient meet any 2 criteria? No. Patient's initial sepsis screen is negative. Does the patient have a suspected source of infection? Yes: Other: ear/tooth. Risk Assessment: Do you want to hurt yourself or someone else? Patient reports no desire to harm self or others. Onset of symptoms was April 21, 2021. 12:40 Method Of Arrival: Ambulatory ll1 12:40 Acuity: TONY 4 ll1 Triage Assessment: 13:30 General: Appears in no apparent distress. comfortable, Behavior is calm, cooperative, jd3 appropriate for age. 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 - Social history:: Smoking status: Patient denies any tobacco usage or history of. Screenin:30 Abuse screen: Denies threats or abuse. Nutritional screening: No deficits noted. jd3 Tuberculosis screening: No symptoms or risk factors identified. Fall Risk Ambulatory Aid- None/Bed Rest/Nurse Assist (0 pts). Gait- Normal/Bed Rest/Wheelchair (0 pts) Mental Status- Oriented to own ability (0 pts). Total Alvarado Fall Scale indicates No Risk (0-24 pts). Assessment: 13:47 General: Appears in no apparent distress. comfortable, Behavior is calm, cooperative, jd3 appropriate for age. Pain: Complains of pain in lower left first molar (#19) Quality of pain is described as aching. Neuro: Level of Consciousness is awake, alert, obeys commands, Oriented to person, place, time, situation. Cardiovascular: Denies chest pain, Capillary refill < 3 seconds Patient's skin is warm and dry. Respiratory: Airway is patent Respiratory effort is even, unlabored, Respiratory pattern is regular, symmetrical, Denies cough, shortness of breath. GI: No signs and/or symptoms were reported involving the gastrointestinal system. : No signs and/or symptoms were reported regarding the genitourinary system. EENT: Reports pain in left ear. Derm: Skin is intact, Skin is dry, Skin is normal, Skin temperature is warm. Musculoskeletal: Circulation, motion, and sensation intact. Range of motion: intact in all extremities. 13:56 Reassessment: Patient appears in no apparent distress at this time. Patient and/or jd3 family updated on plan of care and expected duration. Pain level reassessed. Patient is alert, oriented x 3, equal unlabored respirations, skin warm/dry/pink. Vital Signs: 12:40 BP 118 / 64; Pulse 77; Resp 17; Temp 97.9; Pulse Ox 98% ; Weight 86.18 kg; Height 5 ft. ll1 2 in. (157.48 cm); Pain 7/10; 13:30 Pulse 75; Resp 16 S; Pulse Ox 98% on R/A; jd3 12:40 Body Mass Index 34.75 (86.18 kg, 157.48 cm) ll1 ED Course: 12:12 Patient arrived in ED. wm 12:41 Triage completed. ll1 12:42 Arm band placed on Patient placed in an exam room, on a stretcher. ll1 12:47 Kvng Varela PA is PHCP. [facility] 12:47 Calvin Huerta MD is Attending Physician. [facility] 12:56 aDniela Tomas, RUI is Primary Nurse. aa5 13:30 Patient has correct armband on for positive identification. Bed in low position. Call jd3 light in reach. Side rails up X 1. Pulse ox on. NIBP on. 13:30 No provider procedures requiring assistance completed. Patient did not have IV access jd3 during this emergency room visit. Administered Medications: No medications were administered Outcome: 13:23 Discharge ordered by MD. beckford 13:45 Discharged to home ambulatory. sebastian 13:45 Condition: stable 13:45 Discharge instructions given to patient, Instructed on discharge instructions, follow up and referral plans. medication usage, Demonstrated understanding of instructions, follow-up care, medications, Prescriptions given X 2. 13:53 Patient left the ED. aa5 Signatures: Kvng Varela PA PA jmm Calderon, Audri RN RN aa5 Ivan Gonzalez RN RN [email or web address] Samuel Samayoa RN RN ll1 Sho Shook Corrections: (The following items were deleted from the chart) 12:42 12:40 Chief complaint: Patient states: L lower jaw tooth pain and L ear pain for 4 ll1 days. No fever. 6 months , saw OB 1st, baby is good. ll1
[2021-04-24 14:06] VITALS: BP 118/64; TEMP 97.9; O2SAT 98
--- OUTSIDE RECORDS SUMMARY | 2021-04-24 15:29 | XMS REPORT | Continuity of Care Document ---
:2000 Author Organization [facility] t Address [address] [place] [address] Care Team Providers Name Role Phone Ana Luisa Rothman Attending Clinician Problems This patient has no known problems. Allergies, Adverse Reactions, Alerts This patient has no known allergies or adverse reactions. Medications This patient has no known medications. Procedures This patient has no known procedures. Encounters Start End Encounter Admission Attending Care Care Encounter Source Date/Time Date/Time Type Type Clinicians Facility Department ID 2021-04-04 2021-04-04 Initial ISIDRO Foreman [id number] 13:37:06 14:46:33 Savanah Orosco [facility] [id number] Visit [facility]IONAL [id number] MATERNAL [id number] & CHILD [address] [place] [address] Results This patient has no known results.
== END 2021-04-24 13:53 | disposition home or self-care (01) ==
LOC: ER 12:09
DX: O99.612 Diseases of the digestive system complicating pregnancy, second trimester (principal); K02.9 Dental caries, unspecified; Z3A.24 24 weeks gestation of pregnancy
CPT/HCPCS: 99283

== ENCOUNTER 2021-06-04 19:49 | Emergency (ER) | payer OTHER ==
--- OUTSIDE RECORDS SUMMARY | 2021-06-04 19:51 | XMS REPORT | Continuity of Care Document ---
:[address] [facility] t Address [address] [place] [address] Care Team Providers Name Role Phone Lab Attending Clinician Unavailable Ana Luisa Rothman Attending Clinician Problems This patient has no known problems. Allergies, Adverse Reactions, Alerts This patient has no known allergies or adverse reactions. Medications This patient has no known medications. Procedures This patient has no known procedures. Encounters Start End Encounter Admission Attending Care Care Encounter Source Date/Time Date/Time Type Type Clinicians Facility Department ID 2021-05-20 2021-05-20 Insurance Risk Analyst Ashley, [facility] [id number] 08:22:51 08:40:50 Visit [facility] COMMUNICATION LECTURER [id number] [facility] [id number] MATERNAL [id number] & CHILD [address] [facility] 2021-05-15 2021-05-15 Telephone ISIDRO Foreman [id number] 00:00:00 00:00:00 Savanah N COMMUNICATION LECTURER [id number] REGIONAL [id number] MATERNAL [id number] & CHILD [address] [facility] 2021-05-14 2021-05-14 [facility] [id number] 08:14:35 09:05:46 Savanah N COMMUNICATION LECTURER [id number] Visit [facility] [id number] MATERNAL [id number] & CHILD [address] [facility] 2021-04-04 2021-04-04 Initial Ahsan [facility] [id number] 13:37:06 14:46:33 Savanah Orosco COMMUNICATION LECTURER [id number] Visit [facility] [id number] MATERNAL [id number] & CHILD [address] [facility] Results This patient has no known results.
--- NOTE | 2021-06-04 21:51 | ER ---
Nurse's Notes [facility] Name: Harriet Palomo Age: 20 yrs Sex: Female : 2000 Arrival Date: 06/04/2021 Time: 19:53 Bed Waiting Private MD: Diagnosis: Acute pharyngitis, unspecified Presentation: 06/04 20:46 Chief complaint: Patient states: she has a sore throat and her ears are tingling. bb Coronavirus screen: sore throat, Client presents with at least one sign or symptom that may indicate coronavirus-19. Standard/surgical mask placed on the client. Ebola Screen: No symptoms or risks identified at this time. Initial Sepsis Screen: Does the patient meet any 2 criteria? No. Patient's initial sepsis screen is negative. Does the patient have a suspected source of infection? No. Patient's initial sepsis screen is negative. Risk Assessment: Do you want to hurt yourself or someone else? Patient reports no desire to harm self or others. Onset of symptoms was June 04, 2021. 20:46 Method Of Arrival: Ambulatory bb 20:46 Acuity: TONY 4 bb Triage Assessment: 20:48 General: Appears in no apparent distress. Behavior is calm, cooperative. Pain: bb Complains of pain in throat. EENT: Reports pain in throat. Neuro: Level of Consciousness is awake, alert, obeys commands, Oriented to person, place, time, situation. Cardiovascular: Capillary refill < 3 seconds Patient's skin is warm and dry. Respiratory: Respiratory effort is even, unlabored, Respiratory pattern is regular. GI: No signs and/or symptoms were reported involving the gastrointestinal system. Derm: Skin is pink, warm \T\ dry. Musculoskeletal: Circulation, motion, and sensation intact. 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 - Social history:: Smoking status: unknown. Vital Signs: 20:46 BP 116 / 76; Pulse 106; Resp 18 S; Temp 97.3(O); Pulse Ox 99% on R/A; Weight 90.72 kg bb (R); Height 5 ft. 2 in. (157.48 cm) (R); 20:46 Body Mass Index 36.58 (90.72 kg, 157.48 cm) bb ED Course: 19:53 Patient arrived in ED. wm 20:27 Mary Kay Dyson [facility]NP-C [facility] kb 20:27 Chaparro Ying MD is Attending Physician. kb 20:48 Triage completed. bb 20:48 Arm band placed on Patient placed in waiting room, Patient notified of wait time. Labs bb ordered per protocol. Administered Medications: No medications were administered Outcome: 21:51 Discharge ordered by . kb 21:55 Patient left the ED. kb Signatures: Mary Kay Dyson FNP-C FNP-Ckb Ballard, Brenda, RN RN bb Sho Shook
--- NOTE | 2021-06-04 21:51 | EDPHYS ---
Physician Documentation [facility] Name: Harriet Palomo Age: 20 yrs Sex: Female : 2000 Arrival Date: 06/04/2021 Time: 19:53 Bed Waiting Private MD: ANA Physician Chaparro Ying HPI: 06/04 21:50 This 20 yrs old Female presents to ER via Ambulatory with complaints of Sore kb Throat. 21:50 The patient presents with sore throat. The patient describes throat pain as constant. kb Onset: The symptoms/episode began/occurred 3 day(s) ago. Severity of symptoms: At their worst the symptoms were mild, in the emergency department the symptoms are unchanged. Modifying factors: The symptoms are alleviated by nothing, the symptoms are aggravated by nothing, Patient's oral intake status: good Denies contact with similarly ill indivduals. Associated signs and symptoms: Pertinent positives: earache, Sore throat. The patient has not experienced similar symptoms in the past. The patient has not recently seen a physician. Pt reports sore throat for 3 days. 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 - Social history:: Smoking status: unknown. ROS: 21:49 Constitutional: Negative for fever, chills, and weight loss. kb 21:49 ENT: Positive for ear pain, sore throat. 21:49 All other systems are negative. Exam: 21:49 Constitutional: This is a well developed, well nourished patient who is awake, alert, kb and in no acute distress. Head/Face: Normocephalic, atraumatic. Cardiovascular: Regular rate and rhythm with a normal S1 and S2. No gallops, murmurs, or rubs. No pulse deficits. Respiratory: Respirations even and unlabored. No increased work of breathing, no retractions or nasal flaring. Skin: Warm, dry with normal turgor. Normal color. MS/ Extremity: Pulses equal, no cyanosis. Neurovascular intact. Full, normal range of motion. Neuro: Awake and alert, GCS 15, oriented to person, place, time, and situation. Moves all extremities. Normal gait. Psych: Awake, alert, with orientation to person, place and time. Behavior, mood, and affect are within normal limits. 21:49 ENT: External ear(s): are unremarkable, Ear canal(s): are normal, TM's: are normal, Nose: is normal, Mouth: is normal, Posterior pharynx: Airway: normal, Tonsils: are normal in appearance, Uvula: normal, midline, swelling, is not appreciated, erythema, that is mild, exudate, is not appreciated. Vital Signs: 20:46 BP 116 / 76; Pulse 106; Resp 18 S; Temp 97.3(O); Pulse Ox 99% on R/A; Weight 90.72 kg bb (R); Height 5 ft. 2 in. (157.48 cm) (R); 20:46 Body Mass Index 36.58 (90.72 kg, 157.48 cm) bb MDM: 20:27 Patient medically screened. kb 21:49 Data reviewed: vital signs, nurses notes. Data interpreted: Pulse oximetry: on room air kb is 99 %. Interpretation: normal. Counseling: I had a detailed discussion with the patient and/or guardian regarding: the historical points, exam findings, and any diagnostic results supporting the discharge/admit diagnosis, lab results, the need for outpatient follow up, a family practitioner, to return to the emergency department if symptoms worsen or persist or if there are any questions or concerns that arise at home. 06/04 20:28 Order name: Strep; Complete Time: 21:26 kb 06/04 21:25 Order name: Throat Culture EDMS 06/04 21:46 Order name: SARS-COV-2 RT PCR; Complete Time: 21:49 EDMS Administered Medications: No medications were administered Disposition: 06/05 07:37 Co-signature as Attending Physician, Chaparro Ying MD I agree with the assessment and [place] plan of care. Disposition Summary: 06/04/21 21:51 Discharge Ordered Location: Home kb Condition: Stable kb Diagnosis - Acute pharyngitis, unspecified kb Followup: kb - With: Emergency Department - When: As needed - Reason: Worsening of condition Followup: kb - With: Private Physician - When: 2 - 3 days - Reason: Recheck today's complaints, Continuance of care, Re-evaluation by your physician Discharge Instructions: - Discharge Summary Sheet kb - Pharyngitis, [id number] kb Forms: - Medication Reconciliation Form kb - Thank You Letter kb - Antibiotic Education kb - Prescription Opioid Use kb Signatures: Dispatcher [employer] EDMS Mary Kay Dyson, PLANT TAXONOMY TEACHER-C PLANT TAXONOMY TEACHER-Chaparro Early MD MD cha Ballard, Brenda, RN RN bb Corrections: (The following items were deleted from the chart) 06/04 20:51 20:29 CORONAVIRUS+MR.LAB.BRZ ordered. EDAL EDMS
[2021-06-04 22:16] VITALS: BP 116/76; TEMP 97.3; O2SAT 99
== END 2021-06-04 21:55 | disposition home or self-care (01) ==
LOC: ER 19:49
DX: J02.9 Acute pharyngitis, unspecified (principal); Z20.822 Contact with and (suspected) exposure to COVID-19
CPT/HCPCS: 87070; 87081; 99282; U0003

== ENCOUNTER 2021-09-06 18:17 | Inpatient (IN) | payer OTHER ==
--- OUTSIDE RECORDS SUMMARY | 2021-09-06 18:21 | XMS REPORT | Continuity of Care Document ---
:2000 Author Organization [facility] t Address [address] [place] [place] [address] Care Team Providers Name Role Phone Ana Luisa DRAPRE Primary Care Physician Unavailable Ana Luisa DRAPER Attending Clinician Unavailable Basim BEAUCHAMP Attending Clinician Rigoberto BEAUCHAMP Attending Clinician RIGOBERTO Attending Clinician Unavailable Vu DO Attending Clinician Andrez BEAUCHAMP Attending Clinician INDUCTION Attending Clinician Unavailable Nallely MCGOVERN Attending Clinician Unavailable Lab Attending Clinician Unavailable Jesus Manuel ORTEZ Attending Clinician Unavailable Baron ZHANG, N Attending Clinician Rigoberto BEAUCHAMP Admitting Clinician RIGOBERTO Admitting Clinician Unavailable Payers Payer Name Policy Type Policy Number Effective Date Expiration Date [facility] [id number] 2021 CHOICE MEDICAID 00:00:00 MEDICAID PENDING PENDING 2021 00:00:00 Advance Directives Directive Decision Effective Termination Comments Source Date Date Healthcare Agents on N/A [facility] Agent Medical RelationshipCommunicationJusto [facility] [phone] (Mobile) Problems Condition Condition Condition Status Onset Resolution Last Treating Co mments Source Name Details Category Date Date Treatment Clinician Date Single Single Disease Active 2020-10 Univers live live 0-25 ity of 00:00: [address] Chorioamni Chorioamni Disease Active 2020-10 U nivers onitis onitis 0-24 ity of 00:00: [address] 40 weeks 40 weeks Disease Active 2020-10 Unive rs gestation gestation 0-22 ity of of of 00:00: [place] 00 [facility] Abnormal Abnormal Disease Active Unive rs maternal maternal 7-28 ity of glucose glucose 00:00: [place] tolerance, tolerance, 00 Me dical antepartum antepartum Br anch , , Disease Active Univers delivered, delivered, 6-17 it y of current current 00:00: [facility] 00 Me dical [facility] Limited Limited Disease Active Univers 6-17 ity of care in care in 00:00: [place] second second 00 Medical trimester trimester Bran ch Supervisio Supervisio Disease Active U nivers n of high n of high 6-17 ity of risk risk 00:00: [place] 00 [facility] in third in third Branch trimester trimester Obesity Obesity Disease Active Univers affecting affecting 6-17 [place] of [place] second 00 [facility] trimester trimester Bran ch Anemia, Anemia, Disease Active Univers 4-19 it y of 00:00: [address] Disease Active Univers (normal (normal 4-18 ity of spontaneou spontaneou [place] vaginal [facility] delivery) delivery) Bran ch Anemia of Anemia of Disease Active Uni vers mother in mother in 3-16 ity of , , [place]partum 00 [facility] Multiparit Multiparit Disease Active U nivers y y 3-09 ity of 00:00: [address] Obesity Obesity Disease Active 2014-10 Univers complicati complicati 2-04 it y of ng ng 00:00: [place] 00 [facility] Allergies, Adverse Reactions, Alerts Allergy Allergy Status Severity Reaction(s) Onset Inactive Treating Comm ents Source Name Type Date Date Clinician NO KNOWN Drug Active Univers ALLERGIE Class ity of S [facility] Social History Social Habit Start Date Stop Date Quantity Comments Source ASSERTION [facility] Exposure to Not sure [facility] SARS-CoV-2 (event) Medica l Branch Alcohol intake 2021-08-10 2021-08-10 0 /d [facility] 00:00:00 00:00:00 [facility] Tobacco use and 2015-07-16 2015-07-16 Never used [facility] exposure 00:00:00 00:00:00 [facility] Sex Assigned At [birth year] [facility] 00:00:00 00:00:00 [facility] Smoking Status Start Date Stop Date Source Never smoker [facility] Medications Ordered Filled Start Stop Current Ordering Indication Dosage Frequency Signature Comments Components Source Medication Medication Date Date Medication? Clinician (SIG) Name Name 2020-10 Yes Take by Unive rs 34-IRON-FOL 0-26 mouth. ity of IC-DSS-DHA 15:59: [place] ORAL 29 [facility] ibuprofen 2020-10 Yes [id number] 600mg Take 1 U nivers 600 mg 0-25 tablet by ity of tablet 00:00: mouth [place] 00 every 6 Medical (six) Branch hours as needed (Pain). Take with food or milk. rho(D) 2020-10 Yes 300ug 300 mcg, Univer s immune 0-24 Intramuscu ity of globulin 07:17: lar, ONCE, Ariel as (RHOGAM) 40 For 1 Medical syringe 300 dose, Branch mcg Conditiona l, Routine ibuprofen 2020-10 Yes 600mg 600 mg, Univ ers (IBU) 0-24 Oral, ity of tablet 600 07:17: Q6HPRN, [place] mg 39 Starting Medical on [facility] 08/11/21 at 0217, Until Discontinu ed, Routine, Pain (scale 4-6) acetaminoph 2020-10 Yes 650mg 650 mg, Un jah en 0-24 Oral, ity of (TYLENOL) 07:17: Q6HPRN, [place] tablet 650 39 Starting Medic al mg on [facility] 08/11/21 at 0217, Until Discontinu ed, Routine, Pain (scale 1-3) diphenhydrA 2020-10 Yes 25mg 25 mg, Univ ers MINE 0-24 Oral, ity of (BENADRYL) 07:17: Q6HPRN, [place] tablet 25 39 Starting Medica l mg on [place] Branch 08/11/21 at 216, Until Discontinu ed, Routine, Sleep, Itching diphenhydrA 2020-10 Yes 25mg 25 mg, IV U nivers MINE-0.9 % 0-24 Piggyback, ity of sod.chlr 07:17: Administer [place] as (BENADRYL) 39 over 30 Medica l 25 mg/50 mL Minutes, Bran ch piggyback Q6HPRN, 25 mg Starting on 08/11/21 at 216, Until Discontinu ed, Routine, Itching ondansetron 2020-10 Yes 4mg 4 mg, Slow Univers (ZOFRAN 0-24 IV Push, ity of (PF)) 07:17: Q8HPRN, [place] injection 4 39 Starting Medi shirley mg on [place] Branch 08/11/21 at 216, Until Discontinu ed, Routine, Nausea and Vomiting (N/V) simethicone 2020-10 Yes 160mg 160 mg, Un jah (GAS RELIEF 0-24 Oral, ity of (SIMETHICON 07:17: PC+HSPRN, [place] E)) 39 Starting Medical chewable on [place] Branch tablet 160 08/11/21 mg at 216, Until Discontinu ed, Routine, Gas docusate 2020-10 Yes 240mg 240 mg, Unive rs calcium 0-24 Oral, ity of (SURFAK) 07:17: QDAILYPRN, [place] capsule 240 39 Starting Medi shirley mg on [place] Branch 08/11/21 at 216, Until Discontinu ed, Routine, Constipati on magnesium 2020-10 Yes 30mL 30 mL, Univer s hydroxide 0-24 Oral, ity of (MILK OF 07:17: QDAILYPRN, [place] MAGNESIA) 39 Starting Medica l 400 mg/5 mL on Sun Branch suspension 08/11/21 30 mL at 216, Until Discontinu ed, Routine, Constipati on benzocaine- 2020-10 Yes Topical, Un jah menthol 0-24 PRN, ity of (DERMOPLAST 07:17: [place] 20-0.5 % 39 on Sun Medical topical 08/11/21 Branch spray at 216, Until Discontinu ed, Routine, Perineum discomfort gentamicin 2020-10- No 5mg/kg 340 mg Un jah 40 mg/mL 008-12 (rounded ity of 340 mg in 05:44: 05:47 from 345 Ari[place] as NaCl 0.9% 00 :44 mg = 5 Medical (NS) 250 mL mg/kg ?69 Bra nch IV infusion kg Adjusted weight), IV Infusion, Q24H ABX, First dose on [place] 08/11/21 at 0045, Until Discontinu ed, Administer over 60 Minutes, 250 mL
Reas on for Anti-Infec tive: Documented Infection< br>Documen ulisses Infection Site: Pelvic
Duration of Therapy: Other (see Comments) ampicillin 2020-10- No 2g 2,000 mg Un jah (POLYCILLIN 008-12 (2 g), IV it y of -N) 2,000 05:41: 05:47 Piggyback, [place] mg in NaCl 00 :44 Q6H ABX, Medic al 0.9% (NS) First dose Bran ch 100 mL on [place] MINI-BAG 08/11/21 at 0045, Until Discontinu ed, Administer over 30 Minutes, 100 mL
Reas on for Anti-Infec tive: Documented Infection< br>Documen ulisses Infection Site: Pelvic
Duration of Therapy: Other (see Comments) LR 1000 mL 2020-10- No 999mL/h 999 mL/hr, Univers + oxytocin 008-11 IV ity of 20 units IV 04:45: 04:45 Infusion, [place] Solution 00 :00 ONCE, On Medical [facility] Branch 08/10/21 at 2345, For 1 dose
In fuse 999 mL /hr & nbsp;over 30 minutes and then decrease rate to 125 mL/hr for the remainder.
acetaminoph 2020-10- No 650mg 650 mg, U nivers en 0-08-11 Oral, ity of (TYLENOL) 04:33: 07:17 Q6HPRN, [place] tablet 650 39 :41 Starting Medic al mg on Sat Branch 08/10/21 at 2333, Until [place] 08/11/21 at 0217, Routine, Pain (scale 1-3) lactated 2020-10- No 500mL at 999 Unive rs ringers IV 0-23 10-23 mL/hr, 500 it y of infusion 14:30: 13:38 mL, IV [place] 500 mL 00 :00 Infusion, Medical ONCE, 1 Branch dose, On 08/10/21 at 0930, Routine LR 1000 mL 2020-10- No 2mU/min at 6-120 Univers + oxytocin 0-23 10-24 mL/hr, IV ity of 20 units IV 13:34: 07:17 Infusion, [place] Solution 46 :41 TITRATE, Medical Starting Branch on 08/10/21 at 0834, Until 08/11/21 at 0217, YOVANA fentaNYL 2 2020-10- Intra-op Un jah mcg/mL + 0-10 08-24 ity of bupivacaine 13:27: 05:56 [place] 0.1% in NS 00 :32 Medical 250 mL Branch epidural bag lidocaine-e 2020-10- No Epidural, Univers pinephrine 0- 10-24 ONCE INTRA it y of (XYLOCAINE 13:27: 05:56 PROCEDURE, [place] W/EPINEPHRI 00 :32 Starting Medi shirley NE) 1.5 on Sat Branch %-1:200,000 08/10/21 injection at 0827, Until 08/11/21 at 0056, Routine, Intra-op lidocaine 2020-10- No Infiltrati U nivers 1% 0-24 on, ONCE ity of (XYLOCAINE) 13:17: 05:56 INTRA [place] 100 mg/10 00 :32 PROCEDURE, Medi shirley mL (1 %) Starting Branch injection on 08/10/21 at 0817, Until 08/11/21 at 0056, Routine, Intra-op lactated 2020-10- No 500mL at 999 Unive rs ringers IV 0-23 10-23 mL/hr, 500 it y of infusion 13:15: 13:04 mL, IV [place] 500 mL 00 :00 Infusion, Medical ONCE, 1 Branch dose, On 08/10/21 at 0815, Routine sodium 2020-10- No 30mL 30 mL, Univers citrate-cit 0-23 10-23 Oral, ity of demond acid 12:14: 13:04 PRE-PROCED [place] (BICITRA) 02 :00 URE ONCE, Medic al 500-334 1 dose, Branch mg/5 mL Starting solution 30 on Sat mL 08/10/21 at 0714, Until Discontinu ed, Routine, Surgery/Pr ocedure proMETHazin 2020-10- No 25mg 25 mg, IV Univers e 008-10 Piggyback, ity of (PHENERGAN) 03:30: 02:58 ONCE, 1 [place] 25 mg in 00 :00 dose, On Medical NaCl 0.9% Fri Branch (NS) 50 mL 08/09/21 IV at 2230, piggyback Routine nalbuphine 2020-10- No 10mg 10 mg, Univ ers (NUBAIN) 08-10 Intravenou ity of injection 03:30: 02:58 s, ONCE, 1 [place] 10 mg 00 :00 dose, On Medical Fri Branch 08/09/21 at 2230, Routine D5W-LR IV 2020-10- No 1000mL at 125 Uni vers infusion 0 10-24 mL/hr, IV ity o f 1,000 mL 23:45: 07:17 Infusion, [place] as 00 :41 CONTINUOUS Medical , Starting Branch on 08/09/21 at 1845, Until 08/11/21 at 0217, Routine 2020-10 Yes Take by [facility] rs 34-IRON-FOL 0-22 mouth. ity of IC-DSS-DHA 18:43: [place] ORAL 10 Medical Branch ferrous Yes [id number] 325mg Take 1 Un jah sulfate 325 7-28 tablet by ity of mg (65 mg 00:00: mouth 2 [place] iron) 00 (two) Medical tablet times Branch daily. ascorbic Yes [id number] 500mg Take 1 U nivers acid, 7-28 tablet by ity of vitamin C, 00:00: mouth 3 [place] 500 mg 00 (three) Medical tablet times Branch daily. ferrous Yes [id number] 325mg Take 1 Un jah sulfate 325 7-28 tablet by ity of mg (65 mg 00:00: mouth 2 [place] iron) 00 (two) Medical tablet times Branch daily. ascorbic Yes [id number] 500mg Take 1 U nivers acid, 7-28 tablet by ity of vitamin C, 00:00: mouth 3 [place] 500 mg 00 (three) Medical tablet times [place] daily. Immunizations Ordered Filled Immunization Date Status Comments [facility] Immunization Name Name Varicella 2021-08-12 Completed University of (varivax)(chicken 00:00:00 [place] M edical pox) Branch Influenza Virus 2021-08-12 Completed Universit y of Vaccine Quad IM, 00:00:00 [facility] dical Preserv and ABX Branch Free 6 MO-64 YRS TDAP 2021-06-11 Completed University of 00:00:00 [facility] TDAP 2021-06-11 Completed University of 00:00:00 [facility] HPV9 2019-01-13 Completed University of 00:00:00 [facility] HPV9 2019-01-13 Completed University of 00:00:00 [facility] MMR 2018-08-09 Completed University of 00:00:00 [facility] Varicella 2018-08-09 Completed University of (varivax)(chicken 00:00:00 [place] M edical pox) Branch MMR 2018-08-09 Completed University of 00:00:00 [facility] Varicella 2018-08-09 Completed University of (varivax)(chicken 00:00:00 [place] M edical pox) Branch Influenza Virus 2018-08-08 Completed Universit y of Vaccine Quad .5 mL 00:00:00 [facility] IM 6+ MO Branch HPV9 2018-08-08 Completed University of 00:00:00 [facility] Influenza Virus 2018-08-08 Completed Universit y of Vaccine Quad .5 mL 00:00:00 [facility] IM 6+ MO Branch HPV9 2018-08-08 Completed University of 00:00:00 [facility] TDAP 2018-05-27 Completed University of 00:00:00 [facility] TDAP 2018-05-27 Completed University of 00:00:00 [facility] MMR 2017-02-04 Completed University of 00:00:00 [facility] Varicella 2017-02-04 Completed University of (varivax)(chicken 00:00:00 [place] M edical pox) Branch HPV 2017-02-04 Completed University of 00:00:00 [facility] MMR 2017-02-04 Completed University of 00:00:00 [facility] Varicella 2017-02-04 Completed University of (varivax)(chicken 00:00:00 [facility] edical pox) Branch HPV 2017-02-04 Completed University of 00:00:00 [facility] TDAP 2016-12-25 Completed University of 00:00:00 [facility] Influenza Virus 2016-12-25 Completed Universit y of Vaccine Quad IM 3+ 00:00:00 [facility] TDAP 2016-12-25 Completed University of 00:00:00 [facility] Influenza Virus 2016-12-25 Completed Universit y of Vaccine Quad IM 3+ 00:00:00 [facility] TDAP 2015-08-14 Completed University of 00:00:00 [facility] TDAP 2015-08-14 Completed University of 00:00:00 [facility] Influenza Virus 2015-07-16 Completed Universit y of Vaccine Quad IM 3+ 00:00:00 [facility] Influenza Virus 2015-07-16 Completed Universit y of Vaccine Quad IM 3+ 00:00:00 [facility] TDAP 2013-10-19 Completed University of 00:00:00 [facility] 2013-10-19 Completed University of 00:00:00 [facility] Vital Signs Vital Name Observation Time Observation Value Comments Source Systolic blood 2021-08-13 17:01:00 101 mm[Hg] Univer sity of pressure [facility] Diastolic blood 2021-08-13 17:01:00 64 mm[Hg] Unive rsity of pressure [facility] Heart rate 2021-08-13 17:01:00 68 /min [facility] Body temperature 2021-08-13 17:01:00 36.44 [facility] Res[facility] rate 2021-08-13 17:01:00 18 /min [facility] Oxygen saturation in 2021-08-13 17:01:00 95 /min [facility] Arterial blood by [facility] Pulse oximetry Branch Body height 2021-08-09 23:07:00 157.5 cm [facility] Body weight 2021-08-09 23:07:00 97.4 kg [facility] BMI 2021-08-09 23:07:00 39.26 kg/m2 [facility] Procedures Procedure Date / Time Performed Performing Clinician Sourc e CBC WITH DIFF 2021-08-11 09:56:[facility] 2021-08-11 04:36:00 Yessi [facility] CENTRAL NEURAXIAL 2021-08-10 13:27:06 Cristhian Abreu [facility] BLOCK [facility] CBC WITH DIFF 2021-08-10 01:06[facility] 2021-08-10 01:06:00 Alondra Dickson [facility] ANTIGEN [facility] HIV 1/2 AG-AB WITH 2021-08-10 01:06:00 Alondra Dickson [facility] REFLEX [facility] GALV ONLY - SYPHILIS 2021-08-10 01:06:00 Alondra Dickson [facility] IGG/IGM [facility] HB ABO GROUPING 2021-08-10 00:51:00 Yessi [facility] RHO (D) IMMUNE 2021-08-10 00:51:00 [facility] GLO[facility] COVID-19 (ID NOW 2021-08-09 23:04:00 Theodore Stallworth [facility] RAPID TESTING) [facility] Encounters Start End Encounter Admission Attending Care Care Encounter Source Date/Time Date/Time Type Type Clinicians Facility Department ID 2021-09-19 2021-09-19 Outpatient Nallely DRAPER [facility] [id number] Univers 09:00:00 09:00:00 SAVANAH [id number] [facility] 2021-09-19 2021-09-19 Outpatient Nallely DRAPER [facility] [id number] Univers 09:00:00 09:00:00 SAVANAH [facility] 2021-08-09 2021-08-13 [facility] Theodore Stallworth [id number] Univers 17:39:00 15:59:00 Encounter Willie Franklin [id number] [facility] [id number] Ariel [place] [id number] [place] [id number] Branch 2021-08-09 2021-08-13 Inpatient P RIGOBERTO DESUKHI ALEXSANDER [id number] Univers 17:39:00 15:59:00 WILLIE gustavoraymond o f [facility] 2021-08-10 2021-08-11 Anesthesia Cristhian Abreu [id number] Univers 08:17:00 00:56:00 Event [id number] [id number] [place] [id number] [address] 2021-08-09 2021-08-09 Outpatient INDUCTION, [facility] [id number] Univers 07:30:00 07:30:00 [facility] [id number] [facility] 2021-07-30 2021-07-30 [facility] [id number] Univers 11:00:00 11:00:00 SAVANAH [id number] [facility] 2021-07-30 2021-07-30 [facility] [id number] Univers 11:00:00 11:00:00 SAVANAH [facility] 2021-07-25 2021-07-25 Outpatient R [facility] [id number] Univers 11:00:00 11:00:00 [id number] [facility] 2021-07-25 2021-07-25 Outpatient R [facility] [id number] Univers 11:00:00 11:00:00 [facility] 2021-07-22 2021-07-22 Outpatient R [facility] [id number] Univers 14:00:00 14:00:00 [id number] [facility] 2021-07-22 2021-07-22 Outpatient R [facility] [id number] Univers 14:00:00 14:00:00 [facility] 2021-07-19 2021-07-19 [facility] [id number] Univers 11:00:00 11:00:00 SAVANAH [facility] 2021-07-19 2021-07-19 [facility] [id number] Univers 10:00:00 10:00:00 SAVANAH [id number] [facility] 2021-07-19 2021-07-19 Outpatient Nallely DRAPER [facility] [id number] Univers 10:00:00 10:00:00 SAVANAH raymond [facility] 2021-07-18 2021-07-18 Outpatient Nallely DRAPER [facility] [id number] Univers 16:00:00 16:00:00 SAVANAH ugalde [facility] 2021-07-18 2021-07-18 Outpatient Nallely DRAPER [facility] [id number] Univers 12:45:00 12:45:00 SAVANAH [id number] aftab [facility] 2021-07-18 2021-07-18 Outpatient Nallely DRAPER [facility] [id number] Univers 12:45:00 12:45:00 SAVANAH ugalde [facility] 2021-07-12 2021-07-12 [facility] [id number] Univers 08:30:00 08:30:00 SAVANAH [id number] [facility] 2021-07-12 2021-07-12 Outpatient Nallely DRAPER [facility] [id number] Univers 08:30:00 08:30:00 SAVANAH ugalde [facility] 2021-06-27 2021-06-27 Outpatient Nallely DRAPER [facility] [id number] Univers 12:45:00 12:45:00 SAVANAH [id number] [facility] 2021-06-27 2021-06-27 Outpatient Nallely DRAPER [facility] [id number] Univers 12:45:00 12:45:00 SAVANAH raymond [facility] 2021-06-11 2021-06-11 Outpatient Nallely MCGOVERN [facility] [id number] Univers 14:45:00 14:45:00 NIURKA [id number] ity o f [facility] 2021-06-11 2021-06-11 Outpatient Nallely MCGOVERN [facility] [id number] Univers 14:45:00 14:45:00 ROSNIHARIKAA ity o f [facility] 2021-06-04 2021-06-04 Outpatient [facility] [id number] Univers 10:45:00 10:45:00 [id number] [facility] 2021-06-04 2021-06-04 Outpatient P [facility] [id number] Univers 10:45:00 10:45:00 [facility] 2021-05-28 2021-05-28 Outpatient R BARON [facility] [id number] Univers 08:00:00 08:00:00 SAVANAH [id number] [facility] 2021-05-28 2021-05-28 [facility] [id number] Univers 08:00:00 08:00:00 SAVANAH [facility] 2021-05-20 2021-05-20 Legislative Correspondent Lab, [facility] [id number] 08:22:51 08:40:[address] 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 REGIONAL [id number] MATERNAL [id number] & CHILD 107 [facility] 2021-05-20 2021-05-20 Outpatient [facility] [id number] Univers 08:00:00 08:00:00 [id number] [facility] 2021-05-20 2021-05-20 Outpatient R NEELIMA [facility] [id number] Univers 08:00:00 08:00:00 DELL aftab o f [facility] 2021-05-16 2021-05-16 Outpatient [facility] [id number] Univers 10:45:00 10:45:00 SAVANAH [id number] [facility] 2021-05-16 2021-05-16 [facility] [id number] Univers 10:45:00 10:45:00 SAVANAH [facility] 2021-05-15 2021-05-15 Telephone Baron DESUKHI [id number] 00:00:00 00:00:00 Savanah Orosco 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 REGIONAL [id number] MATERNAL [id number] & CHILD 107 [facility] 2021-05-14 2021-05-14 [facility] [id number] 08:14:35 09:05:46 Savanah N 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 Visit REGIONAL [id number] MATERNAL [id number] & CHILD 107 [facility] 2021-05-14 2021-05-14 Outpatient R BARON [facility] [id number] Univers 07:45:00 07:45:00 SAVANAH [id number] [facility] 2021-05-14 2021-05-14 Outpatient R BARON [facility] [id number] Univers 07:45:00 07:45:00 SAVANAH raymond [facility] 2021-04-30 2021-04-30 [facility] [id number] Univers 16:00:00 16:00:00 SAVANAH [facility] 2021-04-30 2021-04-30 Outpatient [facility] [id number] Univers 15:00:00 15:00:00 SAVANAH [facility] 2021-04-30 2021-04-30 Outpatient R [facility] [id number] Univers 10:15:00 10:15:00 SAVANAH [id number] [facility] 2021-04-30 2021-04-30 Outpatient R [facility] [id number] Univers 10:15:00 10:15:00 SAVANAH [facility] 2021-04-04 2021-04-04 [facility] [id number] 13:37:06 14:46:33 Savanah N 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 Visit REGIONAL [id number] MATERNAL [id number] & CHILD 107 [facility] 2021-04-04 2021-04-04 Outpatient R [facility] [id number] Univers 13:00:00 13:00:00 [id number] [facility] 2021-04-04 2021-04-04 Outpatient R [facility] [id number] Univers 13:00:00 13:00:00 [facility] 2021-03-28 2021-03-28 Outpatient R [facility] [id number] Univers 13:00:00 13:00:00 [id number] [facility] 2021-03-28 2021-03-28 Outpatient R [facility] [id number] Univers 13:00:00 13:00:00 [facility] 2021-03-26 2021-03-26 Outpatient R [facility] [id number] Univers 09:30:00 09:30:00 [id number] [facility] Results Test Description Test Time Test Comments Results Result Comments Source CBC with Differential 2021-08-11 10:08:07 Test Item Value Reference Range Interpretation Comme nts WBC (test code = 6690-2) See_Comment [A utomated message] The system which ge nerated this result transmit ulisses reference range: 4.30 - 1 1.10 10*3/?L. The reference r jacobo was not used to interpr et this result as normal/abnor mal. RBC (test code = 789-8) See_Comment L [Au tomated message] The system which ge nerated this result transmit ulisses reference range: 3.93 - 5 .25 10*6/?L. The reference r jacobo was not used to interpr et this result as normal/abnor mal. HGB (test code = 718-7) 9.8 g/dL 11.6-15.0 L HCT (test code = 4544-3) 30.9 % 35.7-45.2 L MCV (test code = 787-2) 84.7 fL 80.6-95.5 MCH (test code = 785-6) 26.8 pg 25.9-32.8 MCHC (test code = 786-4) 31.7 g/dL 31.6-35.1 RDW-SD (test code = 83720-3) 44.8 fL 39.0-49.9 RDW-CV (test code = 788-0) 14.5 % 12.0-15.5 PLT (test code = 777-3) See_Comment [Au tomated message] The system which ge nerated this result transmit ulisses reference range: 166 - 35 8 10*3/?L. The reference range was not used to interpret th is result as normal/abnormal . MPV (test code = 82024-0) 10.9 fL 9.5-12.9 NRBC/100 WBC (test code = See_Comment [ Automated message] The [id number]) system which Lytro nerated this result transmit ulisses reference range: 0.0 - 10 .0 /100 WBCs. The reference r jacobo was not used to interpr et this result as normal/abnor mal. NRBC x10^3 (test code = <0.01 See_Comment [Au tomated message] The [id number]) system which Lytro nerated this result transmit ulisses reference range: 10*3/?L. The reference range was not u sed to interpret this result as normal/abnormal . GRAN MAT (NEUT) % (test code 75.0 % = 770-8) IMM GRAN % (test code = 0.40 % [id number]) LYMPH % (test code = 736-9) 19.7 % MONO % (test code = 5905-5) 4.5 % EOS % (test code = 713-8) 0.2 % BASO % (test code = 706-2) 0.2 % GRAN MAT x10^3(ANC) (test 7.02 10*3/uL 1.88-7.09 code = 9510244357) IMM GRAN x10^3 (test code = 0.04 10*3/uL 0.00-0.06 2777214527) LYMPH x10^3 (test code = 1.85 10*3/uL 1.32-3.29 731-0) MONO x10^3 (test code = 0.42 10*3/uL 0.33-0.92 742-7) EOS x10^3 (test code = <0.03 0.03-0.39 L 711-2) BASO x10^3 (test code = <0.03 0.01-0.07 704-7) Lab Interpretation (test Abnormal code = 65636-1) [facility] IMMUNE [id number] 07:39:25 Test Item Value Reference Range Interpretation Comments RHIG CANDIDATE? No- see comment Patient i s not a (test code = candidate for R [facility]- 5055) Patient is Rh Positive.Perfor med at [facility] Laboratory Services - [facility] Blood [address] [address]Jypd Free: [phone] A No. [id number] [facility]wood[facility]TER[facility] CORD [id number] 04:50:16 Test Item Value Reference Range Interpretation Comments BASE EXCESS, CORD mEq/L (test code = 1149360406) AC PH, CORD (BEAKER) 7.18-7.38 (test code = 4683475651) PC02, CORD (test code See_Comment [Auto mated message] The = 3994595940) system which g enerated this result transmit ulisses reference range : 32 - 66 mmHg. The refer ence range was not used to interpret this result as normal/abnormal . PO2, CORD (test code See_Comment [Autom ated message] The = 5724626948) system which g enerated this result transmit ulisses reference range : 10 - 30 mmHg. The refer ence range was not used to interpret this result as normal/abnormal . BICARBONATE, CORD See_Comment [Automate d message] The (test code = system which ge nerated this 8354394226) result transmit ulisses reference range : 17 - 27 mEq/L. The refe rence range was not used to interpret this result as normal/abnormal . [facility] CORD [id number] 04:47:16 Test Item Value Reference Range Interpretation Comments VENOUS BASE EXCESS, mEq/L CORD (test code = 0882605385) VENOUS PH, CORD (test 7.25-7.45 code = 2759950993) VENOUS PC02, CORD See_Comment [Automate d message] The (test code = system which ge nerated 3482846810) this result tra nsmitted reference range : 27 - 49 mmHg. The refer ence range was not used to interpret this result as normal/abnormal . VENOUS PO2, CORD (test See_Comment [Aut omated message] The code = 5537543101) system [facility] generated this result tra nsmitted reference range : 17 - 41 mmHg. The refer ence range was not used to interpret this result as normal/abnormal . VENOUS BICARBONATE, See_Comment [Automa ulisses message] The CORD (test code = system whi ch generated 6689795806) this result tra nsmitted reference range : 12 - 29 mEq/L. The refe rence range was not used to interpret this result as normal/abnormal . [facility]wood[facility] ONLY - SYPHILIS [id number] 16:06:13 Test Item Value Reference Range Interpretation Comments Syphilis IgG/IgM (test Non-reactive Non-reactive code = 80905-1) ANDI (test code = ANDI) Non-reactive - No serologic evidence of T. pallidum infection. Cannot exclude incubating or early syphilis. Submit a second specimen in 2-4 weeks if syphilis is clinically suspected. Equivocal - Further testing to follow. Reactive - Further testing to follow. Lab Interpretation (test Normal code = 04861-7) [facility] 1/2 AG-AB WITH [id number] 04:34:36 Test Item Value Reference Range Interpretation Comments HIV Negative Negative Semi-quantitative (test code = 68120-0) ANDI (test code = Non-reactive for HIV-1 ANDI) antigen and HIV-1/HIV-2 antibodies. ?No laboratory evidence of HIV infection. ?Repeat in 2-4 weeks if acute HIV infection is suspected. [facility]woodHepatitis B Surface [id number] 02:37:03 Test Item Value Reference Range Interpretation Comments HBsAg Semi-Quantitative (test code = Negative Negative 5195-3) [facility] KingwoodType and Screen - ONCE [id number] 02:02:07 Test Item Value Reference Range Interpretation Comments ABO & RH (test code A POSITIVE Performe d at [facility] = 20) Laboratory Serv [facility] Blood [facility] [address] [facility] [place] [address]Cvqb Free: [phone] A No. [id number] IAT (test code = Negative Performed a t [facility] 1185) Laboratory Serv [facility] [address] [facility] [place] [address]Naph Free: [phone] A No. [id number] [facility]woodCBC with [id number] 01:33:17 Test Item Value Reference Range Interpretation Comments WBC (test code = See_Comment [Automated 6690-2) message] The sy stem which generated this result transmitted reference range : 4.30 - 11.10 10*3/?L. The reference range was not used to interpret this result as normal/abnormal . RBC (test code = See_Comment L [Automated 789-8) message] The sy stem which generated this result transmitted reference range : 3.93 - 5.25 10*6/?L. The reference range was not used to interpret this result as normal/abnormal . HGB (test code = 10.0 g/dL 11.6-15.0 L 718-7) HCT (test code = 31.1 % 35.7-45.2 L 4544-3) MCV (test code = 82.7 fL 80.6-95.5 787-2) MCH (test code = 26.6 pg 25.9-32.8 785-6) MCHC (test code = 32.2 g/dL 31.6-35.1 786-4) RDW-SD (test code = 43.2 fL 39.0-49.9 92296-8) RDW-CV (test code = 14.6 % 12.0-15.5 788-0) PLT (test code = See_Comment [Automated 777-3) message] The sy stem which generated this result transmitted reference range : 166 - 358 10*3/ ?L. The reference r jacobo was not used to interpret this result as normal/abnormal . MPV (test code = 10.5 fL 9.5-12.9 88215-1) NRBC/100 WBC (test See_Comment [Automat ed code = 2323962255) message] The system which generated this result transmitted reference range : 0.0 - 10.0 /100 WBCs. The refer ence range was not u sed to interpret th is result as normal/abnormal . NRBC x10^3 (test code <0.01 See_Comment [Auto mated = 6349889611) message] The s ystem which generated this result transmitted reference range : 10*3/?L. The reference range was not used to interpret this result as normal/abnormal . GRAN MAT (NEUT) % 60.8 % (test code = 770-8) IMM GRAN % (test code 0.40 % = 3900000262) LYMPH % (test code = 32.4 % 736-9) MONO % (test code = 5.1 % 5905-5) EOS % (test code = 1.0 % 713-8) BASO % (test code = 0.3 % 706-2) GRAN MAT x10^3(ANC) 4.05 10*3/uL 1.88-7.09 (test code = 2565982249) IMM GRAN x10^3 (test 0.03 10*3/uL 0.00-0.06 code = 6545934224) LYMPH x10^3 (test code 2.16 10*3/uL 1.32-3.29 = 731-0) MONO x10^3 (test code 0.34 10*3/uL 0.33-0.92 = 742-7) EOS x10^3 (test code = 0.07 10*3/uL 0.03-0.39 711-2) BASO x10^3 (test code <0.03 0.01-0.07 = 704-7) Lab Interpretation Abnormal (test code = 79897-5) [facility]
[2021-09-06 19:37] LABS: Absolute Lymphocytes (CBC) 1.3 K/uL (0.7-4.9); Basophils % 0.3 % (0-1.3); Hematocrit 41.1 % (36.0-45.0); Lymphocytes % 16.5 % (15.3-44.8); MPV 8.8 fL (7.6-11.3); RBC Red Blood Cell Count 5.07 M/uL (3.86-4.86)
[2021-09-06 19:38] LABS: ALT/SGPT 101 U/L (12-78); AST/SGOT 73 U/L (15-37); Albumin 3.9 g/dL (3.4-5.0); Alkaline Phosphatase 71 U/L (45-117); BUN Blood Urea Nitrogen 9 mg/dL (7-18); Bicarbonate 32 mmol/L (21-32); Bilirubin Direct 0.2 mg/dL (0-0.2); Bilirubin Total 0.5 mg/dL (0.2-1.0); Glucose Level 95 mg/dL (74-106); Lipase 87 U/L (73-393); Magnesium 2.3 mg/dL (1.8-2.4); Potassium 4.4 mmol/L (3.5-5.1); Protein, Total 8.1 g/dL (6.4-8.2); Sodium Level 142 mmol/L (136-145)
[2021-09-06] MEDS ORDERED: PANTOPRAZOLE 40 MG INJ ONE (20:05)
[2021-09-06] MEDS ORDERED: NA CHLORIDE 0.9% 1,000 ML ONE (20:05)
[2021-09-06] MEDS ORDERED: METOCLOPRAMIDE 10 MG/2mL INJ ONE (20:05)
--- NOTE | 2021-09-06 21:01 | RAD REPORT ---
EXAM DESCRIPTION: US - Abdomen Exam Limited - 09/06/2021 8:08 pm CLINICAL HISTORY: Abdominal pain. COMPARISON: 2018 FINDINGS: Multiple gallstones. The gallbladder wall is mildly thickened. The wall appears edematous The biliary tree is normal caliber. IMPRESSION: Cholelithiasis Mildly thickened gallbladder wall may indicate cholecystitis
--- NOTE | 2021-09-06 21:18 | ER ---
Nurse's Notes [facility] Name: Harriet Palomo Age: 20 yrs Sex: Female : 2000 Arrival Date: 09/06/2021 Time: 18:20 Bed 24 Private MD: Diagnosis: Acute cholecystitis Presentation: 09/06 18:33 Chief complaint: Patient states: mid abd pain X 2 days , also has been vomiting. iw Coronavirus screen: At this time, the client does not indicate any symptoms associated with coronavirus-19. Ebola Screen: Patient negative for fever greater than or equal to 101.5 degrees Fahrenheit, and additional compatible Ebola Virus Disease symptoms Patient denies exposure to infectious person. Patient denies travel to an Ebola-affected area in the 21 days before illness onset. No symptoms or risks identified at this time. Initial Sepsis Screen: Does the patient meet any 2 criteria? No. Patient's initial sepsis screen is negative. Does the patient have a suspected source of infection? No. Patient's initial sepsis screen is negative. Risk Assessment: Do you want to hurt yourself or someone else? Patient reports no desire to harm self or others. Onset of symptoms was September 04, 2021. 18:33 Method Of Arrival: Ambulatory iw 18:33 Acuity: TONY 3 iw Triage Assessment: 20:26 General: Appears in no apparent distress. Behavior is calm, cooperative, appropriate tw5 for age. 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 - Social history:: Smoking status: Patient denies any tobacco usage or history of. Screenin:23 Abuse screen: Denies threats or abuse. Denies injuries from another. Nutritional tw5 screening: No deficits noted. Tuberculosis screening: No symptoms or risk factors identified. Fall Risk None identified. Assessment: 20:23 Pain: Complains of pain in right upper quadrant Pain currently is 6 out of 10 on a pain tw5 scale. Quality of pain is described as burning, dull. Neuro: Level of Consciousness is awake, alert, obeys commands, Oriented to person, place, time, situation. GI: Bowel sounds present X 4 quads. Abd is soft X 4 quads Abdomen is tender to palpation in right upper quadrant Reports vomiting. Derm: Skin is intact, is healthy with good turgor. 21:44 Reassessment: No changes from previously documented assessment. Patient and/or family tw5 updated on plan of care and expected duration. Pain level reassessed. Patient states feeling better. 22:13 Reassessment: No changes from previously documented assessment. Patient and/or family tw5 updated on plan of care and expected duration. Pain level reassessed. Patient denies pain at this time. Patient states feeling better. Vital Signs: 18:33 BP 113 / 77; Pulse 82; Resp 16; Temp 98.0; Pulse Ox 98% on R/A; Weight 81.65 kg; Height iw 5 ft. 2 in. (157.48 cm); 20:23 BP 107 / 69; Pulse 55; Resp 18; Pulse Ox 99% on R/A; Pain 6/10; tw5 21:44 BP 116 / 73; Pulse 64; Resp 18; Pulse Ox 98% on R/A; tw5 22:13 BP 110 / 57; Pulse 52; Resp 20; Pulse Ox 100% on R/A; Pain 0/10; tw5 18:33 Body Mass Index 32.92 (81.65 kg, 157.48 cm) iw ED Course: 18:20 Patient arrived in ED. mr 18:35 Triage completed. iw 18:36 Arm band placed on. iw 18:41 Chaparro Cook PA is PHCP. cp 18:41 Calvin Huerta MD is Attending Physician. cp 18:41 Jeff Sharma MD is Attending Physician. cp 18:50 Samuel Samayoa, RUI is Primary Nurse. ll1 18:50 Patient placed in an exam room, on a stretcher. ll1 19:12 Inserted saline lock: 22 gauge in left antecubital area, using aseptic technique. Blood ll1 collected. 20:05 US Abdomen Limited Sent. tw5 20:07 US Abdomen Limited In Process Unspecified. EDMS 20:15 COVID-19 (Coronavirus) Document "Date of Onset" if Symptomatic Sent. tw5 20:23 Patient has correct armband on for positive identification. Placed in gown. Bed in low tw5 position. Call light in reach. Side rails up X 1. Pulse ox on. NIBP on. Door closed. Noise minimized. Lights dimmed. Warm blanket given. Verbal reassurance given. 20:23 COVID swab sent to lab. tw5 21:17 Toro Mora MD is Hospitalizing Provider. cp 21:33 Urine --Ancillary (enter results) Sent. tw5 23:14 No provider procedures requiring assistance completed. Patient admitted, IV remains in tw5 place. 23:22 Primary Nurse role handed off by Samuel Samayoa, RUI bb Administered Medications: 20:15 Drug: NS 0.9% 1000 ml Route: IV; Rate: 1 bolus; Site: left antecubital; tw5 22:48 Follow up: Response: No adverse reaction; IV Status: Completed infusion tw5 20:18 Drug: Reglan (metoCLOPramide) 10 mg Route: IVP; Site: left antecubital; tw5 21:43 Follow up: Response: No adverse reaction tw5 20:21 Drug: ProTONIX (pantoprazole) 40 mg Route: IVP; Site: left antecubital; tw5 21:43 Follow up: Response: No adverse reaction tw5 21:43 Drug: Zosyn (piperacillin-tazobactam) 3.375 grams Route: IVPB; Infused Over: 60 mins; tw5 Site: left antecubital; 22:48 Follow up: IV Status: Completed infusion tw5 22:13 Not Given (Patient Refused): morphine 2 mg IVP once; (PAIN>8) RASS on ADMN: Combtv4, tw5 Very Agttd3, Agttd2, Rstlss1, AlertClm0, Drwsy-1, LtSdtn-2, ModSdtn-3, DpSdtn-4, UnArsble-5 x2 Outcome: 21:18 Decision to Hospitalize by Provider. cp 23:14 Admitted to Med/surg accompanied by nurse, room 24 in ER, with chart, Report called to tw5 Med surg nurse 23:14 Condition: stable 23:14 Instructed on the need for admit. 23:15 Patient left the ED. tw5 09/07 13:20 Patient left the ED. ss Signatures: Dispatcher [facility] Rachel Morales Brenda, RN RN bb Heike Foreman RN RN iw Ksenia Almaguer RN RN ss Page, Corey, PA PA cp Lewis, Lynsay, RN RN [facility] Koki Salinas tw5 Corrections: (The following items were deleted from the chart) 09/06 18:35 18:33 Pulse 82bpm; Resp 16bpm; Pulse Ox 98% RA; Temp 98.0F; 81.65 kg; Height 5 ft. 2 iw in.; BMI: 32.9; iw 20:21 20:15 CORONAVIRUS drawn and sent. tw5 EDMS
--- NOTE | 2021-09-06 21:19 | EDPHYS ---
Physician Documentation [facility] Name: Harriet Palomo Age: 20 yrs Sex: Female : 2000 Arrival Date: 09/06/2021 Time: 18:20 Bed 24 Private MD: ED Physician Jeff Sharma HPI: 09/06 19:10 This 20 yrs old Female presents to ER via Ambulatory with complaints of cp Breathing Difficulty, Abdominal Pain. 19:10 The patient presents with abdominal pain in the epigastric area. Onset: The cp symptoms/episode began/occurred 2 day(s) ago. The symptoms radiate to right back. Associated signs and symptoms: Pertinent positives: nausea and vomiting, Pertinent negatives: diarrhea, dysuria, fever, vomiting blood. The symptoms are described as waxing/waning. 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 - Social history:: Smoking status: Patient denies any tobacco usage or history of. ROS: 19:15 Eyes: Negative for injury, pain, redness, and discharge. cp 19:15 Constitutional: Negative for body aches, chills, fever, poor PO intake. 19:15 ENT: Negative for ear pain, sore throat, difficulty swallowing, difficulty handling secretions. 19:15 Cardiovascular: Negative for chest pain, palpitations. 19:15 Respiratory: Negative for cough, shortness of breath, wheezing. 19:15 Abdomen/GI: Positive for abdominal pain, nausea and vomiting, anorexia, Negative for diarrhea, constipation, hematemesis, black/tarry stool, rectal bleeding. 19:15 Back: Positive for radiated pain. 19:15 Neuro: Negative for altered mental status, headache, weakness. 19:15 All other systems are negative. Exam: 19:20 Constitutional: The patient appears in no acute distress, alert, awake, non-toxic, well cp developed, well nourished, uncomfortable. 19:20 Head/Face: Normocephalic, atraumatic. cp 19:20 Eyes: Periorbital structures: appear normal, Conjunctiva: normal, no exudate, no injection, Sclera: no appreciated abnormality, Lids and lashes: appear normal, bilaterally. 19:20 ENT: External ear(s): are unremarkable, Nose: is normal, Mouth: Lips: moist, Oral mucosa: moist, Posterior pharynx: Airway: no evidence of obstruction, patent. 19:20 Chest/axilla: Inspection: normal, Palpation: is normal, no crepitus, no tenderness. 19:20 Cardiovascular: Rate: normal, Rhythm: regular. 19:20 Respiratory: the patient does not display signs of respiratory distress, Respirations: normal, no use of accessory muscles, no retractions, labored breathing, is not present, Breath sounds: are clear throughout, no decreased breath sounds, no stridor, no wheezing. 19:20 Abdomen/GI: Inspection: abdomen appears normal, Bowel sounds: active, all quadrants, Palpation: soft, in all quadrants, moderate abdominal tenderness, in the epigastric area and right upper quadrant, rebound tenderness, is not appreciated, voluntary guarding, is elicited in the epigastric area and right upper quadrant. 19:20 Back: pain, that is mild, of the right mid back, ROM is normal. 19:20 Neuro: Orientation: to person, place \\T\\ time. Mentation: is normal. Vital Signs: 18:33 BP 113 / 77; Pulse 82; Resp 16; Temp 98.0; Pulse Ox 98% on R/A; Weight 81.65 kg; Height iw 5 ft. 2 in. (157.48 cm); 20:23 BP 107 / 69; Pulse 55; Resp 18; Pulse Ox 99% on R/A; Pain 6/10; tw5 21:44 BP 116 / 73; Pulse 64; Resp 18; Pulse Ox 98% on R/A; tw5 22:13 BP 110 / 57; Pulse 52; Resp 20; Pulse Ox 100% on R/A; Pain 0/10; tw5 18:33 Body Mass Index 32.92 (81.65 kg, 157.48 cm) iw MDM: 18:57 Patient medically screened. 21:45 Data reviewed: vital signs, nurses notes, lab test result(s), radiologic studies, cp ultrasound. 21:45 Counseling: I had a detailed discussion with the patient and/or guardian regarding: the cp historical points, exam findings, and any diagnostic results supporting the discharge/admit diagnosis, lab results, radiology results, the need for further work-up and treatment in the hospital. Response to treatment: the patient's symptoms have markedly improved after treatment. Physician consultation: Toro Mora MD was contacted at 21:40, regarding admission, to the medical/surgical unit. patient's condition. 09/06 19:02 Order name: Basic Metabolic Panel; Complete Time: 19:43 09/06 19:02 Order name: CBC with Diff; Complete Time: :43 09/06 21:01 Interpretation: Normal except: RBC 5.07; MCH 25.9; RDW 16.3; AGUSTÍN% 77.5. 09/06 19:02 Order name: Hepatic Function; Complete Time: :43 09/06 21:01 Interpretation: Normal except: AST 73; ALT 101; GLOB 4.2; A/G 0.9. 09/06 19:02 Order name: Lipase; Complete Time: :43 09/06 19:02 Order name: Magnesium; Complete Time: :43 09/06 20:10 Order name: COVID-19 (Coronavirus) Document "Date of Onset" if Symptomatic ld1 09/06 20:21 Order name: SARS-COV-2 RT PCR; Complete Time: 21:07 [facility] 09/06 21:22 Order name: Urine Dipstick-Ancillary; Complete Time: 22:00 EDMD 09/06 21:23 Order name: Urine --Ancillary (enter results); Complete Time: 22:00 [facility] 09/07 03:26 Order name: CBC with Automated Diff EDMD 09/07 03:39 Order name: Basic Metabolic Panel EDMS 09/07 03:39 Order name: Liver (Hepatic) Function EDMS 09/07 03:39 Order name: Lipase EDMD 09/06 19:02 Order name: IV Saline Lock; Complete Time: 19:06 09/06 19:02 Order name: Labs collected and sent; Complete Time: 19:06 09/06 19:44 Order name: US Abdomen Limited; Complete Time: 21:07 09/06 21:08 Interpretation: Report reviewed. 09/06 19:44 Order name: NPO; Complete Time: 20:10 09/06 21:10 Order name: Urine Dipstick-Ancillary (obtain specimen); Complete Time: 21:25 cp 09/06 21:10 Order name: Urine Test (obtain specimen); Complete Time: 21:25 cp Administered Medications: 20:15 Drug: NS 0.9% 1000 ml Route: IV; Rate: 1 bolus; Site: left antecubital; tw5 22:48 Follow up: Response: No adverse reaction; IV Status: Completed infusion tw5 20:18 Drug: Reglan (metoCLOPramide) 10 mg Route: IVP; Site: left antecubital; tw5 21:43 Follow up: Response: No adverse reaction tw5 20:21 Drug: ProTONIX (pantoprazole) 40 mg Route: IVP; Site: left antecubital; tw5 21:43 Follow up: Response: No adverse reaction tw5 21:43 Drug: Zosyn (piperacillin-tazobactam) 3.375 grams Route: IVPB; Infused Over: 60 mins; tw5 Site: left antecubital; 22:48 Follow up: IV Status: Completed infusion tw5 22:13 Not Given (Patient Refused): morphine 2 mg IVP once; (PAIN>8) RASS on ADMN: Combtv4, tw5 Very Agttd3, Agttd2, Rstlss1, AlertClm0, Drwsy-1, LtSdtn-2, ModSdtn-3, DpSdtn-4, UnArsble-5 x2 Disposition: 09/08 06:53 Co-signature as Attending Physician, Jeff Sharma MD. [email or web address] Disposition Summary: 09/06/21 21:18 Hospitalization Ordered Hospitalization Status: Inpatient Admission cp Provider: Toro Mora cp Condition: Stable cp Problem: new cp Symptoms: have improved cp Bed/Room Type: Standard cp Location: Telemetry/MedSurg (Inpatient)(09/07/21 13:20) Room Assignment: [facility](09/07/21 13:20) Diagnosis - Acute cholecystitis cp Forms: - Medication Reconciliation Form cp - SBAR form cp Signatures: Dispatcher [employer] EDKelly Angeles RN RN mw Williams, Irene, RN RN Ksenia Almaguer RN RN Chaparro Cook PA PA cp Holmes, Maurice, MD MD 7 Koki Salinas 5 Corrections: (The following items were deleted from the chart) 09/06 20:21 20:11 CORONAVIRUS ordered. EDMS EDMS :32 21:18 Telemetry/MedSurg (Inpatient) cp mw :32 21:18 cp mw 09/07 13:20 09/06 21:32 [facility] ER HOLD mw 09/07 13:20 09/06 21:32 ERHOLD- mw 09/08 03:20 09/07 19:15 Constitutional: Negative for body aches, chills, fever, poor PO intake, cp cp 09/08 03:20 09/07 19:15 Cardiovascular: Negative for chest pain, palpitations, cp cp 09/08 03:20 09/07 19:15 Respiratory: Negative for cough, shortness of breath, wheezing, cp cp 09/08 03:20 09/07 19:15 Abdomen/GI: Positive for abdominal pain, nausea and vomiting, anorexia, cp Negative for diarrhea, constipation, hematemesis, black/tarry stool, rectal bleeding, cp 09/08 03:20 09/07 19:15 Eyes: Negative for injury, pain, redness, and discharge, cp cp 09/08 03:20 09/07 19:15 ENT: Negative for ear pain, sore throat, difficulty swallowing, difficulty cp handling secretions, cp 09/08 03:20 09/07 19:15 Back: Positive for radiated pain, cp cp 09/08 03:20 09/07 19:15 Neuro: Negative for altered mental status, headache, weakness, cp cp 09/08 03:20 09/07 19:15 All other systems are negative, cp cp
[2021-09-06 21:22] LABS: Urine Blood 3+ (Negative); Urine Glucose Negative (Negative); Urine Protein 1+ (Negative); Urine Specific Gravity >=1.030 (1.005-1.030); Urine pH 6.5 (5.0-7.0)
[2021-09-06] MEDS ORDERED: NA CHLORIDE 0.9% 100 ML ONE (21:23)
[2021-09-06] MEDS ORDERED: PIPERACIL/TAZO 3.375 GM VIAL IV ONE (21:23)
[2021-09-06 21:57] LABS: Urine Specific Gravity/Preg >1.030 (1.005-1.030)
[2021-09-06] MEDS ORDERED: MORPHINE 2 MG/ML SYR ONE (22:10)
[2021-09-06] MEDS ORDERED: MORPHINE 4 MG/ML SYR IV PRN (22:17)
[2021-09-06] MEDS ORDERED: ONDANSETRON 4 MG/2 ML VIAL IV PRN (22:17)
[2021-09-06] MEDS ORDERED: D5 0.45 NS 1,000 ML IV ONE (23:30)
[2021-09-06] MEDS: D5 0.45 NS 1,000 ML IV SCH (23:34)
[2021-09-07 00:41] VITALS: BMI 32.9
[2021-09-07] MEDS ORDERED: PIPERACIL/TAZO 3.375 GM VIAL IV ONE ×2 (03:00→08:56)
[2021-09-07] MEDS ORDERED: NA CHLORIDE 0.9% 250 ML ONE (03:03)
[2021-09-07] MEDS: PIPER TAZO 3.375 GM in NA CHLORIDE 0.9% 100 ML IV SCH ×2 (03:14→09:00)
[2021-09-07 03:25] LABS: Absolute Lymphocytes (CBC) 2.1 K/uL (0.7-4.9); Basophils % 0.5 % (0-1.3); Hematocrit 36.7 % (36.0-45.0); Lymphocytes % 38.5 % (15.3-44.8); MPV 8.6 fL (7.6-11.3); RBC Red Blood Cell Count 4.49 M/uL (3.86-4.86)
[2021-09-07 03:38] LABS: ALT/SGPT 81 U/L (12-78); AST/SGOT 47 U/L (15-37); Alkaline Phosphatase 58 U/L (45-117); BUN Blood Urea Nitrogen 7 mg/dL (7-18); Bicarbonate 27 mmol/L (21-32); Bilirubin Direct 0.1 mg/dL (0-0.2); Bilirubin Total 0.4 mg/dL (0.2-1.0); Glucose Level 111 mg/dL (74-106); Lipase 58 U/L (73-393); Potassium 3.4 mmol/L (3.5-5.1); Protein, Total 6.6 g/dL (6.4-8.2); Sodium Level 141 mmol/L (136-145)
[2021-09-07] MEDS ORDERED: NA CHLORIDE 0.9% 100 ML ONE (08:56)
[2021-09-07] MEDS: D5 0.45 NS 1,000 ML IV SCH ×2 (09:03→17:14)
[2021-09-07] MEDS ORDERED: Ringers Lactate 1,000 ML IV ONE (12:39)
[2021-09-07] MEDS ORDERED: BUPIVACAINE 0.5% PF 10 ML VIAL ONE (12:40)
--- NOTE | 2021-09-07 12:58 | P.HP ---
Date of Service: 09/07/21 PC: This 18-year-old female presented to the emergency with severe right upper quadrant abdominal pain, radiating to her back, for diagnosis and treatment. HPC: Patient been having recurrent and now continuous right upper quadrant abdominal pain for the last few weeks. Pain is been unrelenting for the last 48 hours. Her overall extended at home. PSHx: Negative PMHx: 4 para 4 Social Hx: No known drug allergies Sys R: Denies any cough colds wheezing, no urinary complaints, otherwise healthy has been good. 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 O/E: Awake alert vital signs are stable HEENT: Nonicteric Chest: Chest movement equal bilaterally Abd: Mild tenderness this morning it in the right upper quadrant [place]: Intact Data: As documented cholecystitis with cholelithiasis Impression: Acute on chronic cholecystitis with cholelithiasis Plan: I will taken the operative room for laparoscopic possible open cholecystectomy with a cholangiogram. The risks of this procedure have been discussed. The possibility of bleeding, infection, injury to bile ducts blood vessels and intestines has been described. The possible need for an open and/or further surgeries and procedures was discussed. She understands and wants to proceed.
[2021-09-07] MEDS ORDERED: LIDOCAINE 2% MPF 5 ML VIAL ONE (13:03)
[2021-09-07] MEDS ORDERED: propofoL 200 MG/20 ML VIAL IV ONE (13:03)
[2021-09-07] MEDS ORDERED: ROCURONIUM 50 MG/5 ML VIAL IV ONE (13:04)
[2021-09-07] MEDS ORDERED: FENTANYL CITR 100 MCG/2 ML ONE ×2 (13:06→13:50)
[2021-09-07] MEDS ORDERED: dexAMETHasone 10 MG/ML VIAL ONE (13:25)
[2021-09-07] MEDS ORDERED: ONDANSETRON 4 MG/2 ML VIAL ONE (13:25)
[2021-09-07] MEDS ORDERED: KETOROLAC 30 MG/ML INJ ONE (13:25)
[2021-09-07] MEDS ORDERED: GLYCOPYRROLATE 0.2 MG/ML SYR ONE (14:14)
--- NOTE | 2021-09-07 14:28 | P.OP ---
Preoperative diagnosis: Acute on chronic cholecystitis with cholelithiasis Postoperative diagnosis: The same Primary procedure: Laparoscopic cholecystectomy Secondary procedure: Cholangiogram Other procedure(s): Zaira block Anesthesia: General Estimated blood loss: Less than 10 cc Specimen: 1 gallbladder Findings: Acute on chronic cholecystitis Operative Technique: The patient brought the operating room placed supine on the table. After the induction of adequate general endotracheal anesthesia, there the abdomen was prepped with a DuraPrep solution, and she was draped in usual aseptic manner. A subumbilical incision was made. This was brought down to the skin and subcutaneous tissue. The Visiport was used to enter the peritoneal cavity and created pneumoperitoneum to approximately 12 mmHg. Under direct vision a 5 mm trocar was placed in the upper midline, and 2 other 5 mm trochars on the right lateral side of the abdomen. With the patient placed in reverse Trendelenburg and the table rolled to the left we were able to visualize the right upper quadrant. We could see an acute edematous gallbladder that was distended. A grasper was placed on the fundus, another down by Toth's pouch. Allowing for lateral traction we were able to expose both the cystic duct and artery. Attention was turned towards the cystic duct. A clip was placed between the gallbladder and the cystic duct. The cholangiocatheter was now introduced into the peritoneal cavity, an opening was made into the cystic duct through which we obtained a normal intraoperative cholangiogram. No filling defects were noted. The catheter was now removed. Clips were placed on the distal portion of the cystic duct which was then transected. The cystic artery was identified clipped and divided. The gallbladder was now dissected free from the liver bed, placed into an Endo Catch, and brought out through the umbilical trocar site. At this point attention was turned towards the peritoneal cavity. Adequate hemostasis was insured with the electrocautery. Irrigating fluid was aspirated from the peritoneal cavity. The umbilical defect was approximated using the Endo Close and an absorbable suture. Attention was turned towards the anterior abdominal wall. 0.25% Marcaine was injected to perform a tap block to provide for adequate analgesia in the postop erative period. The pneumoperitoneum was now collapsed after having removed the trochars, and the sutures tied. Redd were then applied to the skin. At the end of the procedure the patient was stable was sent to the recovery room. Needle sponge instrument count were correct. No drains were placed. Complications: None Transferred to: Recovery Room Condition: Good
[2021-09-07] MEDS ORDERED: ONDANSETRON 4 MG/2 ML VIAL IV PRN (14:37)
[2021-09-07] MEDS ORDERED: MORPHINE 4 MG/ML SYR IV PRN (14:37)
[2021-09-07] MEDS: FENTANYL CITR 100 MCG/2 ML ONE ×2 (14:43→15:19)
--- NOTE | 2021-09-07 14:49 | RAD REPORT ---
EXAM DESCRIPTION: RAD - Cholangiogram Oper-Xray Or - 09/07/2021 2:37 pm CLINICAL HISTORY: GOPAL WITH Abdominal pain COMPARISON: Abdomen Exam Limited dated 09/06/2021 FINDINGS: Cystic duct injection was performed operating surgeon. No evidence of retained common duct stone. Total fluoro time: 0.1 minutes
[2021-09-07] MEDS ORDERED: ACETAMINOPHEN 500 MG TAB ONE (14:54)
[2021-09-07] MEDS: HYDROCODONE/APAP 7.5/325 MG TAB PO PRN (20:50)
[2021-09-07 23:16] VITALS: O2SAT 98
[2021-09-08] MEDS: D5 0.45 NS 1,000 ML IV SCH ×3 (02:30→14:32)
[2021-09-08] MEDS: HYDROCODONE/APAP 7.5/325 MG TAB PO PRN ×2 (02:47→09:46)
[2021-09-08 16:25] VITALS: BP 101/58; TEMP 97.5
== END 2021-09-08 16:55 | disposition home or self-care (01) | DRG 419 ==
LOC: ER 18:17 → ERHOLD 22:19 → 2ND 09-07 13:20
PROVIDERS: ADMIT Surgery; ATTEND Surgery
PROC: BF00YZZ Plain Radiography of Bile Ducts using Other Contrast (ICD-10-PCS; 2021-09-07)
PROC: 0FT44ZZ Resection of Gallbladder, Percutaneous Endoscopic Approach (ICD-10-PCS; principal; 2021-09-07 13:00)
DX: K80.12 Calculus of gallbladder with acute and chronic cholecystitis without obstruction (principal); Z20.822 Contact with and (suspected) exposure to COVID-19
CPT/HCPCS: 36415; 74300; 76705; 80048; 80076; 81003; 81025; 83690; 83735; 85025; 88304; 94010; 96361; 96365; 96375; 99285; C9113; J1100; J2270; J2405; J2543; J2704; J2765; J3010; J7030; J7050; J7120; J7799; U0003

== ENCOUNTER 2021-09-25 09:41 | Emergency (ER) | payer OTHER ==
--- OUTSIDE RECORDS SUMMARY | 2021-09-25 09:46 | XMS REPORT | Continuity of Care Document ---
:2000 Author Organization [facility] t Address [address] [place] [place] [address] Care Team Providers Name Role Phone Ana Luisa DRAPER Primary Care Physician Unavailable Ana Luisa DRAPER [...] Type Policy Number Effective Date Expiration Date [facility] [id number] 2021 CHOICE MEDICAID 00:00:00 MEDICAID PENDING PENDING 2021 00:00:00 Advance Directives Directive Decision Effective Termination Comments Source Date Date Healthcare Agents on N/A [facility] FileNameRelationEast [facility]alth[facility] Agent Medical RelationshipCommunicationJusto Branch [facility] Care [phone] (Mobile) Problems Condition Condition Condition Status Onset Resolution Last Treating Co mments Source Name Details Category Date Date Treatment Clinician Date Single Single Disease Active 2020-10 Univers live live 0-25 ity of 00:00: [address] Chorioamni Chorioamni Disease Active 2020-10 U nivers onitis onitis 0-24 ity of 00:00: [address] 40 weeks 40 weeks Disease Active 2020-10 Unive rs gestation gestation 0-22 ity of of of 00:00: [place] 00 [facility] Abnormal Abnormal Disease Active Unive rs maternal maternal 7-28 ity of glucose glucose 00:00: [place] tolerance, tolerance, 00 Me dical antepartum antepartum Br anch , , Disease Active Univers delivered, delivered, 6-17 it y of current current 00:00: [facility] hospital 00 [facility] Limited Disease Active Univers 6-17 ity of care in care in 00:00: [place] second second 00 Medical trimester trimester Bran ch Supervisio Supervisio Disease Active U nivers n of high n of high 6-17 ity of risk risk 00:00: [place] 00 [facility] in third in third Branch trimester trimester Obesity Obesity Disease Active Univers affecting affecting 6-17 [place] second 00 [facility] trimester trimester Bran ch Anemia, Anemia, Disease Active Univers 4-19 it y of 00:00: [address] Disease Active Univers (normal (normal 4-18 ity of spontaneou spontaneou [place] vaginal [facility] delivery) delivery) Bran ch Anemia of Anemia of Disease Active Uni vers mother in mother in 3-16 [place]y of , , [place] ante[place] antepartum 00 [facility] Multiparit Multiparit Disease Active U nivers y y 3-09 ity of 00:00: [address] Obesity Obesity Disease Active 2014-10 Univers complicati complicati 2-04 it y of ng ng 00:00: [place] 00 [facility] Allergies, Adverse Reactions, Alerts Allergy Allergy Status Severity Reaction(s) Onset Inactive Treating Comm ents Source Name Type Date Date Clinician NO KNOWN Drug Active Univers ALLERGIE Class ity of S [facility] Social History Social Habit Start Date Stop Date Quantity Comments Source ASSERTION [facility] Exposure to Not sure [facility] SARS-CoV-2 (event) Medica l Branch Alcohol intake 2021-08-10 2021-08-10 0 /d [facility] 00:00:00 00:00:00 [facility] Tobacco use and 2015-07-16 2015-07-16 Never used [facility] exposure 00:00:00 00:00:00 [facility] Sex Assigned At [birth year] [facility] 00:00:00 00:00:00 [facility] Smoking Status Start Date Stop Date Source Never smoker [facility] Medications Ordered Filled Start Stop Current Ordering Indication Dosage Frequency Signature Comments Components Source Medication Medication Date Date Medication? Clinician (SIG) Name Name 2020-10 Yes Take by Unive rs 34-IRON-FOL 0-26 mouth. ity of IC-DSS-DHA 15:59: [place] ORAL 29 [facility] Branch ibuprofen 2020-10 Yes [id number] 600mg Take 1 U nivers 600 mg [...] [place] mg 39 Starting Medical on [facility] 08/11/21 at 0217, Until Discontinu ed, Routine, Pain (scale 4-6) acetaminoph 2020-10 Yes 650mg 650 mg, Un jah en 0-24 Oral, ity of (TYLENOL) 07:17: Q6HPRN, [place] tablet 650 39 Starting Medic al mg on [facility] 08/11/21 at 0217, Until Discontinu ed, Routine, [...] IV Infusion, Q24H ABX, First dose on [facility] 08/11/21 at 0045, Until Discontinu ed, Administer [...] First dose Bran ch 100 mL on [facility] MINI-BAG 08/11/21 at 0045, Until Discontinu ed, Administer over 30 Minutes, 100 mL
Reas on for Anti-Infec tive: Documented Infection< br>Documen ulisses Infection Site: Pelvic
Duration of Therapy: Other (see Comments) LR 1000 mL 2020-10- No 999mL/h 999 mL/hr, Univers + oxytocin 008-11 IV ity of 20 units IV 04:45: 04:45 Infusion, [place] Solution 00 :00 ONCE, On Medical [facility] Branch 08/10/21 at 2345, For 1 dose
In fuse 999 mL /hr & nbsp;over 30 minutes and then decrease rate to 125 mL/hr for the remainder.
acetaminoph 2020-10- No 650mg 650 mg, U nivers en 0-08-11 Oral, ity of (TYLENOL) 04:33: 07:17 Q6HPRN[place] tablet 650 39 :41 Starting Medic al mg on Sat Branch 08/10/21 at 2333, Until [facility] 08/11/21 at 0217, Routine, Pain (scale 1-3) [...] at 0217, Routine 2020-10 Yes Take by [facility] rs 34-IRON-FOL 0-22 mouth. ity of IC-DSS-DHA 18:43: [place] ORAL 10 Medical Branch ferrous Yes [id number] 325mg Take 1 Un jah sulfate 325 7-28 tablet by ity of mg (65 mg 00:00: mouth 2 [place] iron) 00 (two) Medical tablet times Branch daily. ascorbic Yes [id number] 500mg Take 1 U nivers acid, 7-28 tablet by ity of vitamin C, 00:00: mouth 3 [place] 500 mg 00 (three) Medical tablet times Branch daily. ferrous Yes [id number] 325mg Take 1 Un jah sulfate 325 7-28 tablet by ity of mg (65 mg 00:00: mouth 2 [place] iron) 00 (two) Medical tablet times Branch daily. ascorbic Yes [id number] 500mg Take 1 U nivers acid, 7-28 tablet by ity of vitamin C, 00:00: mouth 3 [place] 500 mg 00 (three) Medical tablet times [place] daily. Immunizations Ordered Filled Immunization Date Status Comments [facility] e Immunization Name Name Varicella 2021-08-12 Completed University of (varivax)(chicken 00:00:00 [place] M edical pox) Branch Influenza Virus 2021-08-12 Completed Universit y of Vaccine Quad IM, 00:00:00 [facility] dical Preserv and ABX Branch Free 6 MO-64 YRS TDAP 2021-06-11 Completed University of 00:00:00 [facility] TDAP 2021-06-11 Completed University of 00:00:00 [facility] HPV9 2019-01-13 Completed University of 00:00:00 [facility] HPV9 2019-01-13 Completed University of 00:00:00 [facility] MMR 2018-08-09 Completed University of 00:00:00 [facility] Varicella 2018-08-09 Completed University of (varivax)(chicken 00:00:00 [place] M edical pox) Branch MMR 2018-08-09 Completed University of 00:00:00 [facility] Varicella 2018-08-09 Completed University of (varivax)(chicken 00:00:00 [place] M edical pox) Branch Influenza Virus 2018-08-08 Completed Universit y of Vaccine Quad .5 mL 00:00:00 [facility] IM 6+ MO Branch HPV9 2018-08-08 Completed University of 00:00:00 [facility] Influenza Virus 2018-08-08 Completed Universit y of Vaccine Quad .5 mL 00:00:00 [facility] IM 6+ MO Branch HPV9 2018-08-08 Completed University of 00:00:00 [facility] TDAP 2018-05-27 Completed University of 00:00:00 [facility] TDAP 2018-05-27 Completed University of 00:00:00 [facility] MMR 2017-02-04 Completed University of 00:00:00 [facility] Varicella 2017-02-04 Completed University of (varivax)(chicken 00:00:00 [place] M edical pox) Branch HPV 2017-02-04 Completed University of 00:00:00 [facility] MMR 2017-02-04 Completed University of 00:00:00 [facility] Varicella 2017-02-04 Completed University of (varivax)(chicken 00:00:00 [facility] edical pox) Branch HPV 2017-02-04 Completed University of 00:00:00 [facility] TDAP 2016-12-25 Completed University of 00:00:00 [facility] Influenza Virus 2016-12-25 Completed Universit y of Vaccine Quad IM 3+ 00:00:00 [facility] TDAP 2016-12-25 Completed University of 00:00:00 [facility] Influenza Virus 2016-12-25 Completed Universit y of Vaccine Quad IM 3+ 00:00:00 [facility] TDAP 2015-08-14 Completed University of 00:00:00 [facility] TDAP 2015-08-14 Completed University of 00:00:00 [facility] Influenza Virus 2015-07-16 Completed Universit y of Vaccine Quad IM 3+ 00:00:00 [facility] Influenza Virus 2015-07-16 Completed Universit y of Vaccine Quad IM 3+ 00:00:00 [facility] TDAP 2013-10-19 Completed University of 00:00:00 [facility] 2013-10-19 Completed University of 00:00:00 [facility] Vital Signs Vital Name Observation Time Observation Value Comments Source Systolic blood 2021-08-13 17:01:00 101 mm[Hg] Univer sity of pressure [facility] Diastolic blood 2021-08-13 17:01:00 64 mm[Hg] Unive rsity of pressure [facility] Heart rate 2021-08-13 17:01:00 68 /min [facility] Body temperature 2021-08-13 17:01:00 36.44 [facility]ubia [facility] Respiratory rate 2021-08-13 17:01:00 18 /min [facility] Oxygen saturation in 2021-08-13 17:01:00 95 /min [facility] Arterial blood by [facility] Pulse oximetry Branch Body height 2021-08-09 23:07:00 157.5 cm [facility] Body weight 2021-08-09 23:07:00 97.4 kg [facility] BMI 2021-08-09 23:07:00 39.26 kg/m2 [facility] Procedures Procedure Date / Time Performed Performing Clinician Sourc e CBC WITH DIFF 2021-08-11 09:56:00 [facility] GAS 2021-08-11 04:36:00 Yessi [facility] CENTRAL NEURAXIAL 2021-08-10 13:27:06 Cristhian Abreu [facility] BLOCK [facility] CBC WITH DIFF 2021-08-10 01:06:00 [facility] 2021-08-10 01:06:00 Alondra Dickson [facility] ANTIGEN [facility] HIV 1/2 AG-AB WITH 2021-08-10 01:06:00 Alondra Dickson [facility] REFLEX [facility] GALV ONLY - SYPHILIS 2021-08-10 01:06:00 Alondra Dickson [facility] IGG/IGM [facility] HB ABO GROUPING 2021-08-10 00:51:00 Yessi [facility] RHO (D) IMMUNE 2021-08-10 00:51:[facility] COVID-19 (ID NOW 2021-08-09 23:04:00 Theodore Stallworth [facility] RAPID TESTING) [facility] Encounters Start End Encounter Admission Attending Care Care Encounter Source Date/Time Date/Time Type Type Clinicians Facility Department ID 2021-09-19 2021-09-19 Outpatient Nallely DRAPER [facility] [id number] Univers 09:00:00 09:00:00 SAVANAH [id number] [facility] 2021-09-19 2021-09-19 Outpatient Nallely DRAPER [facility] [id number] Univers 09:00:00 09:00:00 SAVANAH [facility] 2021-08-09 2021-08-13 [facility] Theodore Stallworth [id number] Univers 17:39:00 15:59:00 Encounter Willie Franklin [id number] 0 [facility] [id number] Ariel as [id number] [place] [address] Branch 2021-08-09 2021-08-13 Inpatient P RIGOBERTO LASUKHI ALEXSANDER [id number] Univers 17:39:00 15:59:00 WILLIE gustavoraymond o f [facility] 2021-08-10 2021-08-11 Anesthesia Cristhian Abreu [id number] Univers 08:17:00 00:56:00 Event [id number] [id number] Ariel as [id number] [address] 2021-08-09 2021-08-09 Outpatient INDUCTION, [facility] [id number] Univers 07:30:00 07:30:00 [facility] [id number] [facility] 2021-07-30 2021-07-30 [facility] [id number] Univers 11:00:00 11:00:00 SAVANAH [id number] [facility] 2021-07-30 2021-07-30 [facility] [id number] Univers 11:00:00 11:00:00 SAVANAH [facility] 2021-07-25 2021-07-25 Outpatient R [facility] [id number] Univers 11:00:00 11:00:00 [id number] [facility] 2021-07-25 2021-07-25 Outpatient R [facility] [id number] Univers 11:00:00 11:00:00 [facility] 2021-07-22 2021-07-22 Outpatient R [facility] [id number] Univers 14:00:00 14:00:00 [id number] [facility] 2021-07-22 2021-07-22 Outpatient R [facility] [id number] Univers 14:00:00 14:00:00 [facility] 2021-07-19 2021-07-19 [facility] [id number] Univers 11:00:00 11:00:00 SAVANAH [facility] 2021-07-19 2021-07-19 [facility] [id number] Univers 10:00:00 10:00:00 SAVANAH [id number] [facility] 2021-07-19 2021-07-19 Outpatient Nallely DRAPER [facility] [id number] Univers 10:00:00 10:00:00 SAVANAH raymond [facility] 2021-07-18 2021-07-18 Outpatient Nallely DRAPER [facility] [id number] Univers 16:00:00 16:00:00 SAVANAH ugalde [facility] 2021-07-18 2021-07-18 Outpatient Nallely DRAPER [facility] [id number] Univers 12:45:00 12:45:00 SAVANAH [id number] aftab [facility] 2021-07-18 2021-07-18 Outpatient Nallely DRAPER [facility] [id number] Univers 12:45:00 12:45:00 SAVANAH ugalde [facility] 2021-07-12 2021-07-12 [facility] [id number] Univers 08:30:00 08:30:00 SAVANAH [id number] [facility] 2021-07-12 2021-07-12 Outpatient Nallely DRAPER [facility] [id number] Univers 08:30:00 08:30:00 SAVANAH ugalde [facility] 2021-06-27 2021-06-27 Outpatient Nallely DRAPER [facility] [id number] Univers 12:45:00 12:45:00 SAVANAH [id number] [facility] 2021-06-27 2021-06-27 Outpatient Nallely DRAPER [facility] [id number] Univers 12:45:00 12:45:00 SAVANAH raymond [facility] 2021-06-11 2021-06-11 Outpatient Nallely MCGOVERN [facility] [id number] Univers 14:45:00 14:45:00 NIURKA [id number] ity o f [facility] 2021-06-11 2021-06-11 Outpatient Nallely MCGOVERN [facility] [id number] Univers 14:45:00 14:45:00 ROSNIHARIKAA ity o f [facility] 2021-06-04 2021-06-[address] [facility] [id number] Univers 10:45:00 10:45:00 [id number] [facility] 2021-06-04 2021-06-04 Outpatient P [facility] [id number] Univers 10:45:00 10:45:00 [facility] 2021-05-28 2021-05-28 Outpatient R BARON [facility] [id number] Univers 08:00:00 08:00:00 SAVANAH [id number] [facility] 2021-05-28 2021-05-28 [facility] [id number] Univers 08:00:00 08:00:00 SAVANAH [facility] 2021-05-20 2021-05-20 [facility], [facility] [id number] 08:22:51 08:40:50 Visit [facility] SENIOR SOLUTIONS CONSULTANT [id number] REGIONAL [id number] MATERNAL [id number] & CHILD [address] 2021-05-20 2021-05-[address] [facility] [id number] Univers 08:00:00 08:00:00 [id number] [facility] 2021-05-20 2021-05-20 Outpatient R NEELIMA [facility] [id number] Univers 08:00:00 08:00:00 DELL aftab o f [facility] 2021-05-16 2021-05-16 [facility] [id number] Univers 10:45:00 10:45:00 SAVANAH [id number] [facility] 2021-05-16 2021-05-16 [facility] [id number] Univers 10:45:00 10:45:00 SAVANAH [facility] 2021-05-15 2021-05-15 Telephone Baron LASUKHI [id number] 00:00:00 00:00:00 Savanah Orosco SENIOR SOLUTIONS CONSULTANT 350.1.13.10 REGIONAL [id number] MATERNAL [id number] & CHILD [address] 2021-05-14 2021-05-14 [facility] [id number] 08:14:35 09:05:46 Savanah N SENIOR SOLUTIONS CONSULTANT 350.1.13.10 Visit REGIONAL [id number] MATERNAL [id number] & CHILD [address] 2021-05-14 2021-05-14 Outpatient R BARON [facility] [id number] Univers 07:45:00 07:45:00 SAVANAH [id number] [facility] 2021-05-14 2021-05-14 Outpatient R BARON [facility] [id number] Univers 07:45:00 07:45:00 SAVANAH raymond [facility] 2021-04-30 2021-04-30 [facility] [id number] Univers 16:00:00 16:00:00 SAVANAH [facility] 2021-04-30 2021-04-30 [facility] [id number] Univers 15:00:00 15:00:00 SAVANAH [facility] 2021-04-30 2021-04-30 [facility] [id number] Univers 10:15:00 10:15:00 SAVANAH [id number] [facility] 2021-04-30 2021-04-30 [facility] [id number] Univers 10:15:00 10:15:00 SAVANAH [facility] 2021-04-04 2021-04-04 Initial [facility] [id number] 13:37:06 14:46:33 Savanah N SENIOR SOLUTIONS CONSULTANT [id number] Visit REGIONAL [id number] MATERNAL [id number] & CHILD [address] 2021-04-04 2021-04-04 Outpatient R [facility] [id number] Univers 13:00:00 13:00:00 [id number] [facility] 2021-04-04 2021-04-04 Outpatient R [facility] [id number] Univers 13:00:00 13:00:00 [facility] 2021-03-28 2021-03-28 Outpatient R [facility] [id number] Univers 13:00:00 13:00:00 [id number] [facility] 2021-03-28 2021-03-28 Outpatient R [facility] [id number] Univers 13:00:00 13:00:00 [facility] 2021-03-26 2021-03-26 Outpatient R [facility] [id number] Univers 09:30:00 09:30:00 [id number] [facility] Results Test Description Test Time [...] 31.7 g/dL 31.6-35.1 RDW-SD (test code = 51439-9) 44.8 fL 39.0-49.9 RDW-CV (test code = 788-0) 14.5 % 12.0-15.5 PLT (test code = 777-3) See_Comment [Au tomated message] The system which ge nerated this result transmit ulisses reference range: 166 - 35 8 10*3/?L. The reference range was not used to interpret th is result as normal/abnormal . MPV (test code = 03540-2) 10.9 fL 9.5-12.9 NRBC/100 WBC (test code = See_Comment [ Automated message] The [id number]) system which [employer] nerated this result transmit ulisses reference range: 0.0 - 10 .0 /100 WBCs. The reference r jacobo was not used to interpr et this result as normal/abnor mal. NRBC x10^3 (test code = <0.01 See_Comment [Au tomated message] The 4037195995) system which [employer] nerated this result transmit ulisses reference range: 10*3/?L. The reference range was not u sed to interpret this result as normal/abnormal . GRAN MAT (NEUT) % (test code 75.0 % = 770-8) IMM GRAN % (test code = 0.40 % 0458448350) LYMPH % (test code = 736-9) 19.7 % MONO % (test code = 5905-5) 4.5 % EOS % (test code = 713-8) 0.2 % BASO % (test code = 706-2) 0.2 % GRAN MAT x10^3(ANC) (test 7.02 10*3/uL 1.88-7.09 code = 2486956879) IMM GRAN x10^3 (test code = 0.04 10*3/uL 0.00-0.06 7416379190) LYMPH x10^3 (test code = 1.85 10*3/uL 1.32-3.29 731-0) MONO x10^3 (test code = 0.42 10*3/uL 0.33-0.92 742-7) EOS x10^3 (test code = <0.03 0.03-0.39 L 711-2) BASO x10^3 (test code = <0.03 0.01-0.07 704-7) Lab Interpretation (test Abnormal code = 53746-2) [facility] IMMUNE [id number] 07:39:25 Test Item Value Reference Range Interpretation Comments RHIG CANDIDATE? No- see comment Patient i s not a (test code = candidate for R [facility]- 5055) Patient is Rh Positive.Perfor med at [facility] Laboratory Services - [facility] Blood [address] [address]Nbbw Free: [phone] A No. [id number] [facility] CORD [id number] 04:50:16 Test Item Value Reference Range Interpretation Comments BASE EXCESS, CORD mEq/L (test code = 2684734182) AC PH, CORD (BEAKER) 7.18-7.38 (test code = 4513838993) PC02, CORD (test code See_Comment [Auto mated message] The = 9665807421) system which g enerated this result transmit ulisses reference range : 32 - 66 mmHg. The refer ence range was not used to interpret this result as normal/abnormal . PO2, CORD (test code See_Comment [Autom ated message] The = 6531982977) system which g enerated this result transmit ulisses reference range : 10 - 30 mmHg. The refer ence range was not used to interpret this result as normal/abnormal . BICARBONATE, CORD See_Comment [Automate d message] The (test code = system which ge nerated this 9343549649) result transmit ulisses reference range : 17 - 27 mEq/L. The refe rence range was not used to interpret this result as normal/abnormal . [facility] [id number] 04:47:16 Test Item Value Reference Range Interpretation Comments VENOUS BASE EXCESS, mEq/L CORD (test code = 8154001575) VENOUS PH, CORD (test 7.25-7.45 code = 1510259776) VENOUS PC02, CORD See_Comment [Automate d message] The (test code = system which ge nerated 1130108707) this result tra nsmitted reference range : 27 - 49 mmHg. The refer ence range was not used to interpret this result as normal/abnormal . VENOUS PO2, CORD (test See_Comment [Aut omated message] The code = 6473242749) system [facility] generated this result tra nsmitted reference range : 17 - 41 mmHg. The refer ence range was not used to interpret this result as normal/abnormal . VENOUS BICARBONATE, See_Comment [Automa ulisses message] The CORD (test code = system whi ch generated 2847523843) this result tra nsmitted reference range : 12 - 29 mEq/L. The refe rence range was not used to interpret this result as normal/abnormal . [facility] - SYPHILIS [id number] 16:06:13 Test Item Value Reference Range Interpretation Comments Syphilis IgG/IgM (test Non-reactive Non-reactive code = 44973-8) ANDI (test code = ANDI) Non-reactive - No serologic evidence of T. pallidum infection. Cannot exclude incubating or early syphilis. Submit a second specimen in 2-4 weeks if syphilis is clinically suspected. Equivocal - Further testing to follow. Reactive - Further testing to follow. Lab Interpretation (test Normal code = 22769-6) [facility] 1/2 AG-AB WITH [id number] 04:34:36 Test Item Value Reference Range Interpretation Comments HIV Negative Negative Semi-quantitative (test code = 85572-2) ANDI (test code = Non-reactive for HIV-1 ANDI) antigen and HIV-1/HIV-2 antibodies. ?No laboratory evidence of HIV infection. ?Repeat in 2-4 weeks if acute HIV infection is suspected. [facility] [id number] 02:37:03 Test Item Value Reference Range Interpretation Comments HBsAg Semi-Quantitative (test code = Negative Negative 5195-3) [facility]Type and Screen - ONCE [id number] 02:02:07 Test Item Value Reference Range Interpretation Comments ABO & RH (test code A POSITIVE Performe d at [facility] = 20) Laboratory Serv [facility] [address] [facility] s [id number] Free: [phone] A No. [id number] IAT (test code = Negative Performed a t [facility] 1185) Laboratory Serv [facility] [address] [facility] s [id number] Free: [phone] A No. [id number] [facility] HospitalCBC with [id number] 01:33:17 Test Item Value Reference Range Interpretation [...] RDW-SD (test code = 43.2 fL 39.0-49.9 96117-5) RDW-CV (test code = 14.6 % 12.0-15.5 788-0) PLT (test code = See_Comment [Automated 777-3) message] The sy stem which generated this result transmitted reference range : 166 - 358 10*3/ ?L. The reference r jacobo was not used to interpret this result as normal/abnormal . MPV (test code = 10.5 fL 9.5-12.9 29068-6) NRBC/100 WBC (test See_Comment [Automat ed code = [id number]) message] The system which generated this result transmitted reference range : 0.0 - 10.0 /100 WBCs. The refer ence range was not u sed to interpret th is result as normal/abnormal . NRBC x10^3 (test code <0.01 See_Comment [Auto mated = [id number]) message] The s ystem which generated this result transmitted reference range : 10*3/?L. The reference range was not used to interpret this result as normal/abnormal . GRAN MAT (NEUT) % 60.8 % (test code = 770-8) IMM GRAN % (test code 0.40 % = 4624442840) LYMPH % (test code = 32.4 % 736-9) MONO % (test code = 5.1 % 5905-5) EOS % (test code = 1.0 % 713-8) BASO % (test code = 0.3 % 706-2) GRAN MAT x10^3(ANC) 4.05 10*3/uL 1.88-7.09 (test code = 7877595168) IMM GRAN x10^3 (test 0.03 10*3/uL 0.00-0.06 code = 8832202929) LYMPH x10^3 (test code 2.16 10*3/uL 1.32-3.29 = 731-0) MONO x10^3 (test code 0.34 10*3/uL 0.33-0.92 = 742-7) EOS x10^3 (test code = 0.07 10*3/uL 0.03-0.39 711-2) BASO x10^3 (test code <0.03 0.01-0.07 = 704-7) Lab Interpretation Abnormal (test code = 20751-2) [facility]
--- NOTE | 2021-09-25 11:41 | RAD REPORT ---
EXAM DESCRIPTION: CT - Abdomen Pelvis W Contrast - 09/25/2021 11:22 am CLINICAL HISTORY: Abdominal pain COMPARISON: 2019 TECHNIQUE: Computed axial tomography of the abdomen pelvis was obtained. 100 cc Isovue-300 was admin istered intravenously. Oral contrast was not requested which limits evaluation of bowel. All CT scans are performed using dose optimization technique as appropriate and may include automated exposure control or mA/KV adjustment according to patient size. FINDINGS: Cholecystectomy. No fluid collection within the gallbladder fossa. The liver, spleen, pancreas, adrenal and kidneys appear unremarkable. There is no evidence of diverticulitis. No adnexal mass. Minimal amount of free fluid. Umbilical hernia has a neck 1.5 centimeters. The herniated sac measures 4.3 centimeters. Redd are present within the right anterior skin of the abdomen. IMPRESSION: No acute abnormality is displayed.
--- NOTE | 2021-09-25 11:49 | ER ---
Nurse's Notes [facility] Name: Harriet Palomo Age: 20 yrs Sex: Female : 2000 Arrival Date: 09/25/2021 Time: 09:45 Bed Waiting Private MD: Diagnosis: Abdominal pain, Generalized Presentation: 09/25 10:16 Chief complaint: Patient states: "I had gallbladder surgery 2 weeks ago and my jh5 incisions hurt" Incisions appear to be slightly reddened, but otherwise well healing - no drainage, no swelling, not warm to touch. ; "my kid kept hitting my jaylyn, and they hurt" Pt WAS supposed to have jaylyn removed on SEPTEMBER 15 but never followed up with surgeon. Coronavirus screen: Vaccine status: Patient reports being unvaccinated. Client denies travel out of the [place] in the last 14 days. Ebola Screen: Patient negative for fever greater than or equal to 101.5 degrees Fahrenheit, and additional compatible Ebola Virus Disease symptoms Patient denies exposure to infectious person. Patient denies travel to an Ebola-affected area in the 21 days before illness onset. No symptoms or risks identified at this time. Initial Sepsis Screen: Does the patient meet any 2 criteria? No. Patient's initial sepsis screen is negative. Does the patient have a suspected source of infection? No. Patient's initial sepsis screen is negative. Risk Assessment: Do you want to hurt yourself or someone else? Patient reports no desire to harm self or others. Onset of symptoms was September 2021. 10:16 Method Of Arrival: Ambulatory [facility] 10:16 Acuity: TONY 4 jh5 Triage Assessment: 10:22 General: Appears in no apparent distress. uncomfortable, Behavior is calm, cooperative, jh5 appropriate for age. Pain: Complains of pain in abdomen. Historical: - Allergies: 10:21 No Known Allergies; 5 - Home Meds: 10:21 None [Active]; jh5 - PMHx: 10:21 Gallstone; 5 - PSHx: 10:21 section; Cholecystectomy; [facility] - Immunization history:: Adult Immunizations up to date. - Social history:: Smoking status: Patient denies any tobacco usage or history of. Assessment: 10:52 Reassessment: Pt now tells Kritin, FOOD PACKER that she is having right upper quadrant pain [facility] above her jaylyn that she did not previously disclose to the handbook writer. 11:05 Reassessment: UPT NEGATIVE. [facility] Vital Signs: 10:16 BP 100 / 61; Pulse 68; Resp 16; Temp 98.4; Pulse Ox 100% ; Weight 81.65 kg; Height 5 [facility] ft. 2 in. (157.48 cm); 10:16 Body Mass Index 32.92 (81.65 kg, 157.48 cm) [facility] ED Course: 09:45 Patient arrived in ED. ds1 10:21 Triage completed. [facility] 10:49 Mary Kay Dyson FNP-C is PHCP. kb 10:49 Rosi Connell MD is Attending Physician. kb 11:05 Inserted saline lock: 20 gauge in right antecubital area, using aseptic technique. [facility] 11:22 CT Abd/Pelvis - IV Contrast Only In Process Unspecified. EDMS 11:48 Toro Mora MD is Referral Physician. kb Administered Medications: No medications were administered Outcome: 11:48 Discharge ordered by . kb 12:01 Patient left the ED. [facility] Signatures: Dispatcher [employer] EDAR Mary Kay Dyson FNP-C GRADES 7 8 TUTOR-Carly Reina ds1 Rosita Hernandez, RN RN 5 Corrections: (The following items were deleted from the chart) 10:57 10:16 Chief complaint: Patient states: "I had gallbladder surgery 2 weeks ago and my [facility] incisions hurt" Incisions appear to be slightly reddened, but otherwise well healing - no drainage, no swelling, not warm to touch. Pt due to have jaylyn removed on the ; "my kid kept hitting my jaylyn, and they hurt" [facility]
--- NOTE | 2021-09-25 11:49 | EDPHYS ---
Physician Documentation [facility] Name: Harriet Palomo Age: 20 yrs Sex: Female : 2000 Arrival Date: 09/25/2021 Time: 09:45 Bed Waiting Private MD: ED Physician Rosi Connell HPI: 09/25 11:47 This 20 yrs old Female presents to ER via Ambulatory with complaints of Post kb Surgical Pain, Wound Infection. 11:47 The patient presents with abdominal pain in the right upper quadrant. Onset: The kb symptoms/episode began/occurred 4 day(s) ago. The symptoms do not radiate. Associated signs and symptoms: Pertinent positives: nausea, Pertinent negatives: fever, vomiting. The symptoms are described as constant. Modifying factors: The symptoms are alleviated by nothing, the symptoms are aggravated by pressure. Severity of pain: At its worst the pain was moderate in the emergency department the pain is unchanged. The patient has not experienced similar symptoms in the past. The patient has been recently seen by a physician:. Pt reports she had her gallbladder removed 2 weeks ago. States she has had pain to incisions due to jaylyn being in place for 4 days, as well as RUQ pain and nausea. Was supposed to have jaylyn removed on 09/15/21. Historical: - Allergies: 10:21 No Known Allergies; 5 - Home Meds: 10:21 None [Active]; 5 - PMHx: 10:21 Gallstone; [facility] - PSHx: 10:21 section; Cholecystectomy; [facility] - Immunization history:: Adult Immunizations up to date. - Social history:: Smoking status: Patient denies any tobacco usage or history of. ROS: 11:45 Constitutional: Negative for fever, chills, and weight loss. kb 11:45 Abdomen/GI: Positive for abdominal pain, nausea. 11:45 All other systems are negative. Exam: 11:45 Constitutional: This is a well developed, well nourished patient who is awake, alert, kb and in no acute distress. Head/Face: Normocephalic, atraumatic. ENT: Moist Mucous membranes Respiratory: Respirations even and unlabored. No increased work of breathing. Talking in full sentences Skin: Warm, dry with normal turgor. Normal color. MS/ Extremity: Pulses equal, no cyanosis. Neurovascular intact. Full, normal range of motion. Neuro: Awake and alert, GCS 15, oriented to person, place, time, and situation. Moves all extremities. Normal gait. Psych: Awake, alert, with orientation to person, place and time. Behavior, mood, and affect are within normal limits. 11:45 Abdomen/GI: Inspection: surgical incisions with jaylyn in place to abd with tenderness, no signs of infection, Bowel sounds: normal, Palpation: soft, in all quadrants, mild abdominal tenderness, in the right upper quadrant, moderate abdominal tenderness. Vital Signs: 10:16 BP 100 / 61; Pulse 68; Resp 16; Temp 98.4; Pulse Ox 100% ; Weight 81.65 kg; Height 5 jh5 ft. 2 in. (157.48 cm); 10:16 Body Mass Index 32.92 (81.65 kg, 157.48 cm) jh5 MDM: 10:49 Patient medically screened. kb 11:45 Data reviewed: vital signs, nurses notes. Data interpreted: Pulse oximetry: on room air kb is 100 %. Interpretation: normal. Counseling: I had a detailed discussion with the patient and/or guardian regarding: the historical points, exam findings, and any diagnostic results supporting the discharge/admit diagnosis, radiology results, the need for outpatient follow up, a general surgeon, to return to the emergency department if symptoms worsen or persist or if there are any questions or concerns that arise at home. 09/25 10:54 Order name: CT Abd/Pelvis - IV Contrast Only; Complete Time: 11:45 kb 09/25 10:54 Order name: Urine Dipstick-Ancillary (obtain specimen) 09/25 10:54 Order name: Urine Test (obtain specimen) Administered Medications: No medications were administered Disposition: 22:42 Co-signature as Attending Physician, Rosi Connell MD I agree with the assessment and sp3 plan of care. Disposition Summary: 09/25/21 11:48 Discharge Ordered Location: Home Condition: Stable kb Diagnosis - Abdominal pain, Generalized kb Followup: kb - With: Emergency Department - When: As needed - Reason: Worsening of condition Followup: kb - With: Toro Mora MD - When: 1 - 2 days - Reason: Recheck today's complaints Discharge Instructions: - Discharge Summary Sheet kb - Abdominal Pain, Adult, [id number] kb Forms: - Medication Reconciliation Form kb - Thank You Letter kb - Antibiotic Education kb - Prescription Opioid Use kb Signatures: Dispatcher [employer] Mary Kay Scott, LANDSCAPE SPECIALIST-C LEATHA-Rosi Priest MD MD sp3 Rosita Hernandez RN RN jh5
[2021-09-25 12:10] VITALS: BP 100/61; TEMP 98.4; O2SAT 100
== END 2021-09-25 12:01 | disposition home or self-care (01) ==
LOC: ER 09:41
DX: R10.11 Right upper quadrant pain (principal); Z90.49 Acquired absence of other specified parts of digestive tract
CPT/HCPCS: 82565; 74177; 99283; Q9967